=== PATIENT | male | born 1995 | race African-American/Black ===

== ENCOUNTER 2016-09-28 15:39 | Emergency (ER) | payer OTHER ==
[~2016-09-28] VITALS: Ht 193 cm; Wt 93.2 kg
[2016-09-28] MEDS ORDERED: HYDROCODONE/ACETAMINOPHEN 5-325 MG TABLET PO ONE (16:45)
[2016-09-28 16:50] VITALS: BP 131/59
== END 2016-09-28 17:51 | disposition home or self-care (01) ==
LOC: EMS 15:40
DX: S93.402A Sprain of unspecified ligament of left ankle, initial encounter (principal); S86.012A Strain of left Achilles tendon, initial encounter; X58.XXXA Exposure to other specified factors, initial encounter; Y93.67 Activity, basketball; Y92.89 Other specified places as the place of occurrence of the external cause; Y99.8 Other external cause status
CPT/HCPCS: 29515; 99284

== ENCOUNTER 2017-01-28 19:09 | Emergency (ER) | payer OTHER ==
[~2017-01-28] VITALS: Ht 193 cm; Wt 97.7 kg
[2017-01-28] MEDS ORDERED: IBUPROFEN 800 MG TABLET PO ONE (22:15)
[2017-01-28] MEDS ORDERED: BUPIVACAINE HCL/PF 0.25% 10 ML VIAL INJ ONE (22:30)
[2017-01-28 23:24] VITALS: BP 130/70
== END 2017-01-28 23:24 | disposition home or self-care (01) ==
LOC: EMS 19:11
DX: S91.201A Unspecified open wound of right great toe with damage to nail, initial encounter (principal); W22.8XXA Striking against or struck by other objects, initial encounter; Y93.89 Activity, other specified; Y92.89 Other specified places as the place of occurrence of the external cause; Y99.8 Other external cause status
CPT/HCPCS: 11730; 73660; 99285; J3490; 99284

== ENCOUNTER 2017-03-15 04:50 | Emergency (ER) | payer OTHER ==
[~2017-03-15] VITALS: Ht 193 cm; Wt 100.0 kg
[2017-03-15] MEDS ORDERED: BUPIVACAINE HCL/PF 0.5% 10 ML VIAL INJ ONE (06:30)
[2017-03-15] MEDS ORDERED: PENICILLIN V POTASSIUM 500 MG TABLET PO ONE (06:30)
[2017-03-15 07:00] VITALS: BP 136/89
== END 2017-03-15 07:26 | disposition home or self-care (01) ==
LOC: EMS 04:51
DX: K02.9 Dental caries, unspecified (principal); K04.01 Reversible pulpitis
CPT/HCPCS: 64400; 99284; J3490

== ENCOUNTER 2017-05-12 03:49 | Emergency (ER) | payer OTHER ==
[~2017-05-12] VITALS: Ht 193 cm; Wt 95.5 kg
[2017-05-12 04:34] LABS: APPEARANCE,URINE CLOUDY (CLEAR); GLUCOSE, URINE (UA) NEGATIVE (NEGATIVE); KETONES,URINE NEGATIVE (NEGATIVE); LEUKOCYTE ESTERASE ,URINE NEGATIVE (NEGATIVE); OCCULT BLOOD,URINE NEGATIVE (NEGATIVE); PH,URINE 6.5 (5.0-8.0); PROTEIN,URINE NEGATIVE (NEGATIVE)
[2017-05-12 04:49] LABS: RBC,URINE None Seen /HPF (0-2); WBC,URINE None Seen /HPF (0-5)
[2017-05-12 05:07] VITALS: BP 132/75
[2017-05-14 01:19] LABS: GC DNA N.A. AMPLIFY Negative (Negative)
== END 2017-05-12 05:08 | disposition home or self-care (01) ==
LOC: EMS 03:49
DX: Z11.3 Encounter for screening for infections with a predominantly sexual mode of transmission (principal); R23.8 Other skin changes
CPT/HCPCS: 87491; 87591; 99284

== ENCOUNTER 2017-07-20 00:07 | Emergency (ER) | payer SELFPAY ==
[~2017-07-20] VITALS: Ht 193 cm; Wt 95.5 kg
[2017-07-20 00:11] VITALS: BP 148/97
[2017-07-20] MEDS ORDERED: LIDOCAINE HCL 1% 10 ML VIAL INJ ONE (02:00)
== END 2017-07-20 02:08 | disposition home or self-care (01) ==
LOC: EMS 00:08
DX: K08.89 Other specified disorders of teeth and supporting structures (principal)
CPT/HCPCS: 64400; 99284; J3490

== ENCOUNTER 2017-10-18 16:24 | Emergency (ER) | payer SELFPAY ==
[~2017-10-18] VITALS: Ht 193 cm; Wt 95.5 kg
[2017-10-18 17:16] LABS: APPEARANCE,URINE CLEAR (CLEAR); BILIRUBIN,URINE NEGATIVE (NEGATIVE); GLUCOSE, URINE (UA) NEGATIVE (NEGATIVE); KETONES,URINE NEGATIVE (NEGATIVE); LEUKOCYTE ESTERASE ,URINE MODERATE (NEGATIVE); NITRATE,URINE NEGATIVE (NEGATIVE); OCCULT BLOOD,URINE NEGATIVE (NEGATIVE); PROTEIN,URINE NEGATIVE (NEGATIVE); UROBILINOGEN,URINE 0.2 mg/dL (<=1.0)
[2017-10-18 17:30] LABS: BACTERIA,URINE Few /HPF (None Seen); RBC,URINE 0-2 /HPF (0-2); WBC,URINE 26-50 /HPF (0-5)
[2017-10-18 17:31] LABS: MUCUS,URINE Rare LPF (None Seen); SQUAMOUS EPITHELIAL CELL,UR Rare /LPF (None Seen)
[2017-10-18] MEDS ORDERED: KETOROLAC TROMETHAMINE 30 MG/ML VIAL IVP ONE (18:00)
[2017-10-18 18:19] LABS: BASOPHILS % (AUTO) 0.9 % (0.0-2.0); EOSINOPHILS % (AUTO) 2.5 % (1.0-6.0); HEMATOCRIT 42.6 % (41-53); HEMOGLOBIN 14.4 g/dL (13.5-17.5); LYMPHOCYTES # (AUTO) 2.4 K/uL (1.0-4.8); LYMPHOCYTES % (AUTO) 33.2 % (22.0-44.0); MEAN CORPUSCULAR HEMOGLOBIN 30.1 pg (26.0-34.0); MEAN CORPUSCULAR HGB CONC 33.8 G/dL (31.0-37.0); MEAN CORPUSCULAR VOLUME 89 fL (80-100); MONOCYTES # (AUTO) 0.8 K/uL (0.1-1.0); MONOCYTES % (AUTO) 11.2 % (2.0-9.0); NEUTROPHILS # (AUTO) 3.8 K/uL (1.8-7.7); NEUTROPHILS % (AUTO) 52.2 % (40.0-70.0); PLATELET COUNT (AUTO) 216 K/uL (150-450); RED BLOOD CELL COUNT(AUTO) 4.78 MIL/uL (4.50-5.90); RED CELL DISTRIBUTION WIDTH 13.8 % (11.5-14.5)
[2017-10-18 18:32] LABS: ANION GAP 7 mmol/L (8-16); CALCIUM, TOTAL 9.3 mg/dL (8.8-10.5); CARBON DIOXIDE 28 mmol/L (22-29); CHLORIDE 104 mmol/L (98-107); CREATININE 1.11 mg/dL (0.60-1.30); GLOMERULAR FILTR. RATE CALC > 60 mL/min (>60); GLUCOSE,RANDOM 80 mg/dL (70-110); POTASSIUM 3.7 mmol/L (3.5-5.1); SODIUM SERUM 139 mmol/L (136-145); UREA NITROGEN, BLOOD 9 mg/dL (7-18)
[2017-10-18 18:38] LABS: ALANINE AMINOTRANSFERASE 30 U/L (12-78); ALBUMIN 3.9 g/dL (3.4-5.0); ALKALINE PHOSPHATASE 78 U/L (46-116); ASPARTATE AMINOTRANSFERASE 21 U/L (15-37); BILIRUBIN,TOTAL 0.4 mg/dL (0.1-1.0); LIPASE 114 U/L (73-393); TOTAL PROTEIN, SERUM 7.1 g/dL (6.4-8.2)
[2017-10-18] MEDS ORDERED: IOVERSOL 350 MG/ML 150 ML VIAL ONE (19:36)
[2017-10-18] MEDS ORDERED: SODIUM CHLORIDE 0.9% 100 ML ONE (19:36)
[2017-10-18 21:00] VITALS: BP 126/83
[2017-10-18] MEDS ORDERED: CefTRIAXone SODIUM 1 GM in DEXTROSE 5%-WATER 10 ML IV ONE (21:00)
== END 2017-10-18 21:52 | disposition home or self-care (01) ==
LOC: EMS 16:24
DX: N39.0 Urinary tract infection, site not specified (principal)
CPT/HCPCS: 36415; 74177; 80053; 81001; 83690; 85025; 87086; 96374; 96375; 99285; J0696; J1885; J7050; J7060; Q9967

== ENCOUNTER 2017-12-16 16:57 | Emergency (ER) | payer SELFPAY | END 2017-12-16 17:31 | disposition left against medical advice (07) | LOC: EMS 16:58 | DX: T14.8XXA Other injury of unspecified body region, initial encounter (principal); W50.3XXA Accidental bite by another person, initial encounter; Y93.89 Activity, other specified; Y92.89 Other specified places as the place of occurrence of the external cause; Y99.8 Other external cause status; Z53.21 Procedure and treatment not carried out due to patient leaving prior to being seen by health care provider ==

== ENCOUNTER 2018-03-22 05:39 | Emergency (ER) | payer SELFPAY ==
[~2018-03-22] VITALS: Ht 190.5 cm; Wt 95.4 kg
[2018-03-22] MEDS ORDERED: HYDROCODONE/ACETAMINOPHEN 5-325 MG TABLET PO ONE (06:30)
[2018-03-22] MEDS ORDERED: PENICILLIN V POTASSIUM 500 MG TABLET PO ONE (06:30)
[2018-03-22] MEDS ORDERED: KETOROLAC TROMETHAMINE 60 MG/2 ML VIAL IM ONE (06:30)
[2018-03-22 07:00] VITALS: BP 133/71
[2018-03-22] MEDS ORDERED: BUPIVACAINE/EPI/PF 0.5% 30 ML VIAL SQ ONE (07:00)
== END 2018-03-22 07:22 | disposition left against medical advice (07) ==
LOC: EMS 05:40
DX: K08.89 Other specified disorders of teeth and supporting structures (principal)
CPT/HCPCS: 96372; 99283; J1885; J3490

== ENCOUNTER 2018-04-27 07:05 | Inpatient (IN) | payer SELFPAY ==
[~2018-04-27] VITALS: Ht 193 cm; Wt 98.6 kg
[2018-04-27] MEDS ORDERED: KETOROLAC TROMETHAMINE 30 MG/ML VIAL IVP ONE (07:45)
[2018-04-27] MEDS ORDERED: ONDANSETRON HCL 4 MG/2 ML VIAL IVP ONE (07:45)
[2018-04-27] MEDS ORDERED: SODIUM CHLORIDE 0.9% 1,000 ML IV ONE ×2 (07:45→11:00)
[2018-04-27 08:00] LABS: BASOPHILS % (AUTO) 1.1 % (0.0-2.0); EOSINOPHILS % (AUTO) 2.9 % (1.0-6.0); HEMATOCRIT 43.6 % (41-53); LYMPHOCYTES # (AUTO) 2.3 K/uL (1.0-4.8); LYMPHOCYTES % (AUTO) 35.4 % (22.0-44.0); MEAN CORPUSCULAR HEMOGLOBIN 31.1 pg (26.0-34.0); MEAN CORPUSCULAR HGB CONC 34.5 G/dL (31.0-37.0); MEAN CORPUSCULAR VOLUME 90 fL (80-100); MONOCYTES # (AUTO) 0.7 K/uL (0.1-1.0); NEUTROPHILS # (AUTO) 3.3 K/uL (1.8-7.7); NEUTROPHILS % (AUTO) 50.6 % (40.0-70.0); PLATELET COUNT (AUTO) 208 K/uL (150-450); RED BLOOD CELL COUNT(AUTO) 4.82 MIL/uL (4.50-5.90); RED CELL DISTRIBUTION WIDTH 13.8 % (11.5-14.5)
[2018-04-27 08:03] LABS: APPEARANCE,URINE CLEAR (CLEAR); BILIRUBIN,URINE NEGATIVE (NEGATIVE); GLUCOSE, URINE (UA) NEGATIVE (NEGATIVE); KETONES,URINE NEGATIVE (NEGATIVE); LEUKOCYTE ESTERASE ,URINE NEGATIVE (NEGATIVE); NITRATE,URINE NEGATIVE (NEGATIVE); OCCULT BLOOD,URINE NEGATIVE (NEGATIVE); PROTEIN,URINE NEGATIVE (NEGATIVE); UROBILINOGEN,URINE 0.2 mg/dL (<=1.0)
[2018-04-27 08:16] LABS: ANION GAP 7 mmol/L (8-16); CALCIUM, TOTAL 9.4 mg/dL (8.8-10.5); CARBON DIOXIDE 30 mmol/L (22-29); CHLORIDE 102 mmol/L (98-107); CREATININE 1.25 mg/dL (0.60-1.30); GLOMERULAR FILTR. RATE CALC > 60 mL/min (>60); GLUCOSE,RANDOM 101 mg/dL (70-110); POTASSIUM 3.7 mmol/L (3.5-5.1); SODIUM SERUM 139 mmol/L (136-145); UREA NITROGEN, BLOOD 11 mg/dL (7-18)
[2018-04-27 08:22] LABS: ALANINE AMINOTRANSFERASE 28 U/L (12-78); ALBUMIN 4.1 g/dL (3.4-5.0); ALKALINE PHOSPHATASE 84 U/L (46-116); ASPARTATE AMINOTRANSFERASE 19 U/L (15-37); BILIRUBIN,TOTAL 0.6 mg/dL (0.1-1.0); LIPASE 1192 U/L (73-393); TOTAL PROTEIN, SERUM 7.4 g/dL (6.4-8.2)
[2018-04-27] MEDS ORDERED: MORPHINE SULFATE 4 MG/ML SYRINGE IVP PRN ×2 (11:00→17:45)
[2018-04-27] MEDS ORDERED: ONDANSETRON HCL 4 MG/2 ML VIAL IVP PRN (11:00)
[2018-04-27 12:20] VITALS: BP 132/78
[2018-04-27 15:29] VITALS: BP 119/74
[2018-04-27] MEDS: DEXTROSE 5%-0.45% SODIUM CHL 1,000 ML IV SCH (17:42)
[2018-04-27] MEDS ORDERED: ZOLPIDEM TARTRATE 5 MG TABLET PO PRN (17:45)
[2018-04-27] MEDS ORDERED: ALBUTEROL SULFATE 2.5 MG/0.5 ML NEB SOLUTION NEB PRN (17:45)
[2018-04-27] MEDS ORDERED: IPRATROPIUM BROMIDE 0.5 MG/2.5 ML NEB SOLUTION NEB PRN (17:45)
[2018-04-27] MEDS ORDERED: MAGNESIUM HYDROXIDE SUSPENSION 30 ML UDCUP PO PRN (17:45)
[2018-04-27] MEDS ORDERED: BISACODYL 10 MG RECTAL RECTAL SUPPOSITORY PR PRN (17:45)
[2018-04-27] MEDS ORDERED: ACETAMINOPHEN 325 MG TABLET PO PRN (17:45)
[2018-04-27] MEDS: DOCUSATE SODIUM 100 MG CAPSULE PO SCH (19:58)
[2018-04-27 20:11] VITALS: BP 113/56
[2018-04-27] MEDS: HEPARIN SODIUM,PORCINE 5,000 UNITS/ML VIAL SQ SCH (23:28)
[2018-04-28] MEDS: DEXTROSE 5%-0.45% SODIUM CHL 1,000 ML IV SCH ×2 (00:22→08:44)
[2018-04-28] MEDS: OxyCODONE HCL/ACETAMINOPHEN 5-325 MG TABLET PO PRN ×3 (00:22→21:20)
[2018-04-28 00:42] VITALS: BP 118/58
[2018-04-28 05:29] VITALS: BP 111/61
[2018-04-28 05:31] LABS: EOSINOPHILS % (AUTO) 3.2 % (1.0-6.0); HEMATOCRIT 40.9 % (41-53); HEMOGLOBIN 14.2 g/dL (13.5-17.5); LYMPHOCYTES # (AUTO) 2.3 K/uL (1.0-4.8); LYMPHOCYTES % (AUTO) 43.8 % (22.0-44.0); MEAN CORPUSCULAR HEMOGLOBIN 31.1 pg (26.0-34.0); MEAN CORPUSCULAR HGB CONC 34.6 G/dL (31.0-37.0); MEAN CORPUSCULAR VOLUME 90 fL (80-100); MONOCYTES # (AUTO) 0.5 K/uL (0.1-1.0); MONOCYTES % (AUTO) 9.3 % (2.0-9.0); NEUTROPHILS # (AUTO) 2.3 K/uL (1.8-7.7); NEUTROPHILS % (AUTO) 42.7 % (40.0-70.0); PLATELET COUNT (AUTO) 195 K/uL (150-450); RED BLOOD CELL COUNT(AUTO) 4.55 MIL/uL (4.50-5.90); RED CELL DISTRIBUTION WIDTH 13.7 % (11.5-14.5)
[2018-04-28 05:46] LABS: ALANINE AMINOTRANSFERASE 24 U/L (12-78); ALBUMIN 3.5 g/dL (3.4-5.0); ALKALINE PHOSPHATASE 74 U/L (46-116); AMYLASE 74 U/L (25-115); ANION GAP 6 mmol/L (8-16); ASPARTATE AMINOTRANSFERASE 17 U/L (15-37); BILIRUBIN,TOTAL 0.9 mg/dL (0.1-1.0); CALCIUM, TOTAL 8.7 mg/dL (8.8-10.5); CARBON DIOXIDE 28 mmol/L (22-29); CHLORIDE 104 mmol/L (98-107); CREATININE 1.16 mg/dL (0.60-1.30); GLOMERULAR FILTR. RATE CALC > 60 mL/min (>60); GLUCOSE,RANDOM 106 mg/dL (70-110); LIPASE 211 U/L (73-393); POTASSIUM 3.5 mmol/L (3.5-5.1); SODIUM SERUM 138 mmol/L (136-145); TOTAL PROTEIN, SERUM 6.3 g/dL (6.4-8.2); UREA NITROGEN, BLOOD 8 mg/dL (7-18)
[2018-04-28 07:33] VITALS: BP 109/49
[2018-04-28] MEDS: DOCUSATE SODIUM 100 MG CAPSULE PO SCH (08:45)
[2018-04-28] MEDS: HEPARIN SODIUM,PORCINE 5,000 UNITS/ML VIAL SQ SCH ×2 (08:45→16:00)
[2018-04-28] MEDS: PANTOPRAZOLE SODIUM 40 MG/VIAL IVP SCH (08:45)
[2018-04-28 12:00] VITALS: BP 132/50
[2018-04-28] MEDS: ONDANSETRON HCL 4 MG/2 ML VIAL IVP PRN (12:58)
[2018-04-28 15:55] VITALS: BP 119/63
[2018-04-28 23:58] VITALS: BP 118/59
[2018-04-29] MEDS: HEPARIN SODIUM,PORCINE 5,000 UNITS/ML VIAL SQ SCH ×3 (00:27→14:08)
[2018-04-29] MEDS: DOCUSATE SODIUM 100 MG CAPSULE PO SCH ×3 (00:28→21:22)
[2018-04-29 03:30] VITALS: BP 126/64
[2018-04-29 06:14] LABS: BASOPHILS % (AUTO) 0.8 % (0.0-2.0); HEMATOCRIT 40.7 % (41-53); HEMOGLOBIN 14.6 g/dL (13.5-17.5); LYMPHOCYTES # (AUTO) 2.3 K/uL (1.0-4.8); MEAN CORPUSCULAR HEMOGLOBIN 31.4 pg (26.0-34.0); MEAN CORPUSCULAR HGB CONC 35.8 G/dL (31.0-37.0); MEAN CORPUSCULAR VOLUME 88 fL (80-100); MONOCYTES # (AUTO) 0.6 K/uL (0.1-1.0); MONOCYTES % (AUTO) 9.5 % (2.0-9.0); NEUTROPHILS % (AUTO) 48.7 % (40.0-70.0); PLATELET COUNT (AUTO) 200 K/uL (150-450); RED BLOOD CELL COUNT(AUTO) 4.63 MIL/uL (4.50-5.90); RED CELL DISTRIBUTION WIDTH 13.5 % (11.5-14.5)
[2018-04-29 06:27] LABS: ALANINE AMINOTRANSFERASE 25 U/L (12-78); ALBUMIN 3.6 g/dL (3.4-5.0); ALKALINE PHOSPHATASE 82 U/L (46-116); AMYLASE 80 U/L (25-115); ANION GAP 5 mmol/L (8-16); ASPARTATE AMINOTRANSFERASE 19 U/L (15-37); CALCIUM, TOTAL 9.2 mg/dL (8.8-10.5); CARBON DIOXIDE 30 mmol/L (22-29); CHLORIDE 105 mmol/L (98-107); CREATININE 1.09 mg/dL (0.60-1.30); GLOMERULAR FILTR. RATE CALC > 60 mL/min (>60); GLUCOSE,RANDOM 86 mg/dL (70-110); LIPASE 164 U/L (73-393); POTASSIUM 3.6 mmol/L (3.5-5.1); SODIUM SERUM 140 mmol/L (136-145); TOTAL PROTEIN, SERUM 6.6 g/dL (6.4-8.2); UREA NITROGEN, BLOOD 5 mg/dL (7-18)
[2018-04-29 08:00] VITALS: BP 111/66
[2018-04-29] MEDS: PANTOPRAZOLE SODIUM 40 MG/VIAL IVP SCH (08:24)
[2018-04-29] MEDS: OxyCODONE HCL/ACETAMINOPHEN 5-325 MG TABLET PO PRN (09:33)
[2018-04-29 11:59] VITALS: BP 120/66
[2018-04-29] MEDS: ONDANSETRON HCL 4 MG/2 ML VIAL IVP PRN (13:12)
[2018-04-29 15:49] VITALS: BP 112/56
[2018-04-29] MEDS ORDERED: SODIUM CHLORIDE 0.9% 100 ML ONE (16:30)
[2018-04-29] MEDS ORDERED: IOVERSOL 320 MG/ML 100 ML VIAL ONE (16:30)
[2018-04-29] MEDS ORDERED: BARIUM SULFATE 0.1% SUSPENSION 450 ML BOTTLE ONE (17:14)
[2018-04-29 19:57] VITALS: BP 125/67
[2018-04-29] MEDS ORDERED: DiphenhydrAMINE HCL 50 MG/ML VIAL IVP ONE (21:00)
[2018-04-29] MEDS ORDERED: FAMOTIDINE 10 MG/ML 2 ML VIAL IVP ONE (21:00)
[2018-04-29] MEDS ORDERED: MethylPREDNISolone SOD SUCC 40 MG/ML VIAL IVP ONE (21:15)
[2018-04-29] MEDS ORDERED: FAMOTIDINE 20 MG TABLET PO ONE (21:30)
[2018-04-29 23:08] VITALS: BP 130/67
[2018-04-30 04:50] VITALS: BP 111/73
[2018-04-30 06:41] LABS: BASOPHILS % (AUTO) 0.2 % (0.0-2.0); EOSINOPHILS % (AUTO) 0.1 % (1.0-6.0); HEMATOCRIT 44.5 % (41-53); HEMOGLOBIN 15.8 g/dL (13.5-17.5); LYMPHOCYTES # (AUTO) 0.7 K/uL (1.0-4.8); MEAN CORPUSCULAR HEMOGLOBIN 31.5 pg (26.0-34.0); MEAN CORPUSCULAR HGB CONC 35.4 G/dL (31.0-37.0); MEAN CORPUSCULAR VOLUME 89 fL (80-100); MONOCYTES # (AUTO) 0.1 K/uL (0.1-1.0); NEUTROPHILS # (AUTO) 4.1 K/uL (1.8-7.7); NEUTROPHILS % (AUTO) 82.7 % (40.0-70.0); PLATELET COUNT (AUTO) 239 K/uL (150-450); RED CELL DISTRIBUTION WIDTH 13.9 % (11.5-14.5)
[2018-04-30 06:56] LABS: ALANINE AMINOTRANSFERASE 24 U/L (12-78); ALBUMIN 4.1 g/dL (3.4-5.0); ALKALINE PHOSPHATASE 87 U/L (46-116); AMYLASE 62 U/L (25-115); ANION GAP 7 mmol/L (8-16); ASPARTATE AMINOTRANSFERASE 16 U/L (15-37); BILIRUBIN,TOTAL 0.7 mg/dL (0.1-1.0); CALCIUM, TOTAL 9.7 mg/dL (8.8-10.5); CARBON DIOXIDE 28 mmol/L (22-29); CHLORIDE 100 mmol/L (98-107); CREATININE 1.28 mg/dL (0.60-1.30); GLOMERULAR FILTR. RATE CALC > 60 mL/min (>60); GLUCOSE,RANDOM 124 mg/dL (70-110); LIPASE 93 U/L (73-393); POTASSIUM 4.1 mmol/L (3.5-5.1); SODIUM SERUM 135 mmol/L (136-145); TOTAL PROTEIN, SERUM 7.6 g/dL (6.4-8.2); UREA NITROGEN, BLOOD 6 mg/dL (7-18)
[2018-04-30 08:00] VITALS: BP 123/67
[2018-04-30] MEDS: HEPARIN SODIUM,PORCINE 5,000 UNITS/ML VIAL SQ SCH ×2 (08:00)
[2018-04-30] MEDS: PANTOPRAZOLE SODIUM 40 MG/VIAL IVP SCH (09:00)
[2018-04-30] MEDS: DOCUSATE SODIUM 100 MG CAPSULE PO SCH (09:00)
[2018-04-30 11:15] VITALS: BP 131/75
== END 2018-04-30 11:45 | disposition home or self-care (01) | DRG 282 ==
LOC: EMS 07:05 → 6N 10:58
PROVIDERS: ADMIT Hospitalist; ATTEND Hospitalist
DX: K85.90 Acute pancreatitis without necrosis or infection, unspecified (principal); J45.909 Unspecified asthma, uncomplicated
CPT/HCPCS: 74176; 74177; 76705; 86850; 86900; 86901; 96374; 96375; C9113; G0378; J1200; J1644; J1885; J2270; J2405; J2920; J3490; J7030; J7050

== ENCOUNTER 2018-06-09 20:47 | Emergency (ER) | payer MEDICAID ==
[~2018-06-09] VITALS: Ht 193 cm; Wt 95.5 kg
[2018-06-09 22:03] LABS: HEMATOCRIT 43.3 % (41-53); HEMOGLOBIN 14.8 g/dL (13.5-17.5); LYMPHOCYTES % (AUTO) 29.7 % (22.0-44.0); MEAN CORPUSCULAR HEMOGLOBIN 30.7 pg (26.0-34.0); MEAN CORPUSCULAR HGB CONC 34.1 G/dL (31.0-37.0); MEAN CORPUSCULAR VOLUME 90 fL (80-100); MONOCYTES # (AUTO) 0.6 K/uL (0.1-1.0); MONOCYTES % (AUTO) 9.6 % (2.0-9.0); NEUTROPHILS # (AUTO) 3.8 K/uL (1.8-7.7); NEUTROPHILS % (AUTO) 56.7 % (40.0-70.0); PLATELET COUNT (AUTO) 220 K/uL (150-450); RED BLOOD CELL COUNT(AUTO) 4.82 MIL/uL (4.50-5.90); RED CELL DISTRIBUTION WIDTH 13.8 % (11.5-14.5)
[2018-06-09 22:08] LABS: ANION GAP 8 mmol/L (8-16); CALCIUM, TOTAL 9.4 mg/dL (8.8-10.5); CARBON DIOXIDE 30 mmol/L (22-29); CHLORIDE 104 mmol/L (98-107); CREATININE 1.06 mg/dL (0.60-1.30); GLOMERULAR FILTR. RATE CALC > 60 mL/min (>60); GLUCOSE,RANDOM 98 mg/dL (70-110); POTASSIUM 3.5 mmol/L (3.5-5.1); SODIUM SERUM 142 mmol/L (136-145); UREA NITROGEN, BLOOD 9 mg/dL (7-18)
[2018-06-09 22:14] LABS: ALANINE AMINOTRANSFERASE 34 U/L (12-78); ALBUMIN 4.1 g/dL (3.4-5.0); ALKALINE PHOSPHATASE 82 U/L (46-116); ASPARTATE AMINOTRANSFERASE 24 U/L (15-37); BILIRUBIN,TOTAL 0.7 mg/dL (0.1-1.0); LIPASE 137 U/L (73-393); TOTAL PROTEIN, SERUM 7.2 g/dL (6.4-8.2)
[2018-06-09 23:06] VITALS: BP 145/83
== END 2018-06-09 23:30 | disposition home or self-care (01) ==
LOC: EMS 20:48
DX: R10.13 Epigastric pain (principal); R10.12 Left upper quadrant pain; J45.909 Unspecified asthma, uncomplicated
CPT/HCPCS: 93005

== ENCOUNTER 2018-07-02 20:41 | Emergency (ER) | payer SELFPAY ==
[~2018-07-02] VITALS: Ht 193 cm; Wt 97.7 kg
[2018-07-02] MEDS ORDERED: METO-296 PO (22:03)
[2018-07-02] MEDS ORDERED: SODIUM CHLORIDE 0.9% 2,000 ML IV ONE (22:30)
[2018-07-02] MEDS ORDERED: FentaNYL CITRATE-PF 100 MCG/2 ML VIAL IVP ONE (22:30)
[2018-07-02] MEDS ORDERED: ONDANSETRON HCL 4 MG/2 ML VIAL IVP ONE (22:30)
[2018-07-02 22:59] LABS: HEMATOCRIT 41.3 % (41-53); HEMOGLOBIN 14.2 g/dL (13.5-17.5); LYMPHOCYTES # (AUTO) 1.8 K/uL (1.0-4.8); LYMPHOCYTES % (AUTO) 26.7 % (22.0-44.0); MEAN CORPUSCULAR HEMOGLOBIN 30.8 pg (26.0-34.0); MEAN CORPUSCULAR HGB CONC 34.5 G/dL (31.0-37.0); MEAN CORPUSCULAR VOLUME 89 fL (80-100); MONOCYTES # (AUTO) 0.6 K/uL (0.1-1.0); MONOCYTES % (AUTO) 9.2 % (2.0-9.0); NEUTROPHILS % (AUTO) 61.1 % (40.0-70.0); PLATELET COUNT (AUTO) 215 K/uL (150-450); RED BLOOD CELL COUNT(AUTO) 4.63 MIL/uL (4.50-5.90); RED CELL DISTRIBUTION WIDTH 13.8 % (11.5-14.5)
[2018-07-02 23:13] LABS: ANION GAP 9 mmol/L (8-16); CALCIUM, TOTAL 8.7 mg/dL (8.8-10.5); CARBON DIOXIDE 28 mmol/L (22-29); CHLORIDE 105 mmol/L (98-107); CREATININE 0.95 mg/dL (0.60-1.30); GLOMERULAR FILTR. RATE CALC > 60 mL/min (>60); GLUCOSE,RANDOM 88 mg/dL (70-110); POTASSIUM 3.4 mmol/L (3.5-5.1); SODIUM SERUM 142 mmol/L (136-145); UREA NITROGEN, BLOOD 9 mg/dL (7-18)
[2018-07-02 23:18] LABS: ALANINE AMINOTRANSFERASE 20 U/L (12-78); ALBUMIN 3.7 g/dL (3.4-5.0); ALKALINE PHOSPHATASE 80 U/L (46-116); ASPARTATE AMINOTRANSFERASE 15 U/L (15-37); BILIRUBIN,TOTAL 0.6 mg/dL (0.1-1.0); LIPASE 162 U/L (73-393); TOTAL PROTEIN, SERUM 6.7 g/dL (6.4-8.2)
[2018-07-03] MEDS ORDERED: ACETAMINOPHEN/CODEINE 300-30 MG TABLET PO ONE (02:00)
[2018-07-03] MEDS ORDERED: ONDANSETRON HCL 4 MG TABLET PO ONE (02:00)
[2018-07-03 02:10] VITALS: BP 122/65
== END 2018-07-03 02:42 | disposition home or self-care (01) ==
LOC: EMS 20:43
DX: R55 Syncope and collapse (principal); K52.9 Noninfective gastroenteritis and colitis, unspecified; J45.909 Unspecified asthma, uncomplicated
CPT/HCPCS: 36415; 70450; 72125; 80053; 83690; 85025; 96361; 96374; 96375; 99284; J2405; J3010; J7030; Q0162

== ENCOUNTER 2018-10-12 01:04 | Emergency (ER) | payer SELFPAY ==
[~2018-10-12] VITALS: Ht 193 cm; Wt 100.0 kg
[~2018-10-12 01:04] MED LIST: METO-296 PO
[2018-10-12 01:54] LABS: BASOPHILS % (AUTO) 0.8 % (0.0-2.0); HEMATOCRIT 43.6 % (41-53); HEMOGLOBIN 14.5 g/dL (13.5-17.5); LYMPHOCYTES % (AUTO) 14.5 % (22.0-44.0); MEAN CORPUSCULAR HEMOGLOBIN 30.2 pg (26.0-34.0); MEAN CORPUSCULAR HGB CONC 33.3 G/dL (31.0-37.0); MEAN CORPUSCULAR VOLUME 91 fL (80-100); MONOCYTES # (AUTO) 0.6 K/uL (0.1-1.0); MONOCYTES % (AUTO) 8.9 % (2.0-9.0); NEUTROPHILS # (AUTO) 5.4 K/uL (1.8-7.7); NEUTROPHILS % (AUTO) 74.8 % (40.0-70.0); PLATELET COUNT (AUTO) 217 K/uL (150-450); RED BLOOD CELL COUNT(AUTO) 4.81 MIL/uL (4.50-5.90); RED CELL DISTRIBUTION WIDTH 13.7 % (11.5-14.5)
[2018-10-12 02:00] LABS: ANION GAP 12 mmol/L (8-16); CALCIUM, TOTAL 9.7 mg/dL (8.8-10.5); CARBON DIOXIDE 27 mmol/L (22-29); CHLORIDE 103 mmol/L (98-107); CREATININE 1.21 mg/dL (0.60-1.30); GLOMERULAR FILTR. RATE CALC > 60 mL/min (>60); GLUCOSE,RANDOM 96 mg/dL (70-110); POTASSIUM 3.6 mmol/L (3.5-5.1); SODIUM SERUM 142 mmol/L (136-145); UREA NITROGEN, BLOOD 10 mg/dL (7-18)
[2018-10-12 02:06] LABS: ALANINE AMINOTRANSFERASE 26 U/L (12-78); ALBUMIN 4.2 g/dL (3.4-5.0); ALKALINE PHOSPHATASE 81 U/L (46-116); ASPARTATE AMINOTRANSFERASE 19 U/L (15-37); BILIRUBIN,TOTAL 0.7 mg/dL (0.1-1.0); LIPASE 143 U/L (73-393); TOTAL PROTEIN, SERUM 7.1 g/dL (6.4-8.2)
[2018-10-12 04:08] LABS: APPEARANCE,URINE CLEAR (CLEAR); BILIRUBIN,URINE NEGATIVE (NEGATIVE); GLUCOSE, URINE (UA) NEGATIVE (NEGATIVE); KETONES,URINE NEGATIVE (NEGATIVE); LEUKOCYTE ESTERASE ,URINE TRACE (NEGATIVE); NITRATE,URINE NEGATIVE (NEGATIVE); OCCULT BLOOD,URINE NEGATIVE (NEGATIVE); PH,URINE 7.5 (5.0-8.0); PROTEIN,URINE NEGATIVE (NEGATIVE)
[2018-10-12 04:15] LABS: BACTERIA,URINE None Seen /HPF (None Seen); RBC,URINE 0-2 /HPF (0-2)
[2018-10-12] MEDS ORDERED: ONDANSETRON HCL 4 MG TABLET PO ONE (04:15)
[2018-10-12] MEDS ORDERED: PB/HYOSCY/ATR/SCOP/LIDO/MAALOX 55 ML BOTTLE PO ONE (04:15)
[2018-10-12 04:16] LABS: SQUAMOUS EPITHELIAL CELL,UR Rare /LPF (None Seen)
[2018-10-12 05:05] VITALS: BP 124/60
== END 2018-10-12 05:22 | disposition home or self-care (01) ==
LOC: EMS 01:06
DX: R10.13 Epigastric pain (principal); R11.0 Nausea; J45.909 Unspecified asthma, uncomplicated
CPT/HCPCS: 36415; 80053; 81001; 83690; 85025; 99283; Q0162

== ENCOUNTER 2019-01-11 17:50 | Emergency (ER) | payer SELFPAY ==
[~2019-01-11] VITALS: Ht 193 cm; Wt 100.0 kg
[2019-01-11] MEDS ORDERED: KETOROLAC TROMETHAMINE 30 MG/ML VIAL IVP ONE (19:45)
[2019-01-11 20:13] VITALS: BP 112/62
== END 2019-01-11 20:36 | disposition home or self-care (01) ==
LOC: EMS 17:51
DX: S93.402A Sprain of unspecified ligament of left ankle, initial encounter (principal); J45.909 Unspecified asthma, uncomplicated; W50.0XXA Accidental hit or strike by another person, initial encounter; Y93.89 Activity, other specified; Y92.89 Other specified places as the place of occurrence of the external cause; Y99.8 Other external cause status
CPT/HCPCS: 73610; 73630; 96374; 99283; J1885

== ENCOUNTER 2019-03-05 08:16 | Emergency (ER) | payer SELFPAY | END 2019-03-05 08:20 | disposition left against medical advice (07) | LOC: EMS 08:18 | DX: Z53.21 Procedure and treatment not carried out due to patient leaving prior to being seen by health care provider (principal) ==

== ENCOUNTER 2019-03-05 10:31 | Emergency (ER) | payer SELFPAY ==
[~2019-03-05] VITALS: Ht 193 cm; Wt 95.9 kg
[2019-03-05 11:38] VITALS: BP 153/83
== END 2019-03-05 11:58 | disposition home or self-care (01) ==
LOC: EMS 10:32
DX: K02.9 Dental caries, unspecified (principal); J45.909 Unspecified asthma, uncomplicated

== ENCOUNTER 2019-04-18 14:45 | Emergency (ER) | payer SELFPAY ==
[~2019-04-18] VITALS: Ht 185.4 cm; Wt 86.0 kg
[2019-04-18] MEDS ORDERED: OxyCODONE HCL/ACETAMINOPHEN 10-325 MG TABLET PO ONE ×2 (17:15→18:30)
[2019-04-18] MEDS ORDERED: LIDOCAINE 1%/EPI 1:200,000/PF 10 ML VIAL INJ ONE (18:00)
[2019-04-18] MEDS ORDERED: IBUPROFEN 600 MG TABLET PO ONE (18:00)
[2019-04-18 19:04] VITALS: BP 136/94
== END 2019-04-18 19:09 | disposition home or self-care (01) ==
LOC: EMS 14:46
DX: S02.5XXA Fracture of tooth (traumatic), initial encounter for closed fracture (principal); K02.9 Dental caries, unspecified; J45.909 Unspecified asthma, uncomplicated; X58.XXXA Exposure to other specified factors, initial encounter; Y93.89 Activity, other specified; Y92.89 Other specified places as the place of occurrence of the external cause; Y99.8 Other external cause status
CPT/HCPCS: 99283; J3490

== ENCOUNTER 2019-06-27 21:20 | Emergency (ER) | payer SELFPAY ==
[~2019-06-27] VITALS: Ht 193 cm; Wt 98.2 kg
[2019-06-27] MEDS ORDERED: DiphenhydrAMINE HCL 25 MG CAPSULE PO ONE (22:45)
[2019-06-27] MEDS ORDERED: KETOROLAC TROMETHAMINE 60 MG/2 ML VIAL IM ONE (22:45)
[2019-06-27] MEDS ORDERED: GuaiFENesin/D-METHORPHAN [SUGAR-FREE] 200-20MG/10 ML SYRUP UDCUP PO ONE (22:45)
[2019-06-27] MEDS ORDERED: ACETAMINOPHEN/CODEINE 300-30 MG TABLET PO ONE (22:45)
[2019-06-27 22:48] VITALS: BP 135/78
== END 2019-06-27 23:10 | disposition home or self-care (01) ==
LOC: EMS 21:21
DX: J45.909 Unspecified asthma, uncomplicated (principal); J06.9 Acute upper respiratory infection, unspecified
CPT/HCPCS: 96372; 99284; J1885

== ENCOUNTER 2019-10-26 16:06 | Emergency (ER) | payer SELFPAY ==
[~2019-10-26] VITALS: Ht 193 cm; Wt 99.1 kg
[2019-10-26 16:35] VITALS: BP 123/76
== END 2019-10-26 17:11 | disposition home or self-care (01) ==
LOC: EMS 16:22
DX: S30.860A Insect bite (nonvenomous) of lower back and pelvis, initial encounter (principal); J45.909 Unspecified asthma, uncomplicated; W57.XXXA Bitten or stung by nonvenomous insect and other nonvenomous arthropods, initial encounter; Y93.89 Activity, other specified; Y92.098 Other place in other non-institutional residence as the place of occurrence of the external cause; Y99.8 Other external cause status

== ENCOUNTER 2021-03-30 14:26 | Emergency (ER) | payer OTHER ==
[~2021-03-30] VITALS: Ht 193 cm; Wt 100.0 kg
[2021-03-30 16:32] VITALS: BP 126/66
== END 2021-03-30 16:23 | disposition home or self-care (01) ==
LOC: EMS 14:27
DX: R19.7 Diarrhea, unspecified (principal); Z20.822 Contact with and (suspected) exposure to COVID-19
CPT/HCPCS: 99283; U0003

== ENCOUNTER 2021-06-26 08:41 | Emergency (ER) | payer OTHER | END 2021-06-26 09:17 | disposition left against medical advice (07) | LOC: EMS 08:43 | DX: R06.02 Shortness of breath (principal); Z53.21 Procedure and treatment not carried out due to patient leaving prior to being seen by health care provider ==

== ENCOUNTER 2021-12-26 22:44 | Emergency (ER) | payer OTHER ==
[~2021-12-26] VITALS: Ht 193 cm; Wt 106.8 kg
[2021-12-26 23:18] VITALS: BP 133/86
[2021-12-27] MEDS ORDERED: METOCLOPRAMIDE HCL 5 MG/ML 2 ML VIAL IVP ONE
[2021-12-27] MEDS ORDERED: ONDANSETRON HCL 4 MG/2 ML VIAL IVP ONE
[2021-12-27] MEDS ORDERED: DiphenhydrAMINE HCL 50 MG/ML VIAL IVP ONE
[2021-12-27] MEDS ORDERED: ACETAMINOPHEN 500 MG TABLET PO ONE
[2021-12-27 00:15] LABS: BASOPHILS % (AUTO) 0.9 % (0.0-2.0); EOSINOPHILS % (AUTO) 2.7 % (1.0-6.0); HEMATOCRIT 42.3 % (41-53); HEMOGLOBIN 14.4 g/dL (13.5-17.5); LYMPHOCYTES # (AUTO) 2.6 K/uL (1.0-4.8); LYMPHOCYTES % (AUTO) 34.5 % (22.0-44.0); MEAN CORPUSCULAR HEMOGLOBIN 30.3 pg (26.0-34.0); MEAN CORPUSCULAR HGB CONC 34.1 G/dL (31.0-37.0); MEAN CORPUSCULAR VOLUME 89 fL (80-100); MONOCYTES # (AUTO) 0.8 K/uL (0.1-1.0); MONOCYTES % (AUTO) 11.4 % (2.0-9.0); NEUTROPHILS # (AUTO) 3.8 K/uL (1.8-7.7); NEUTROPHILS % (AUTO) 50.5 % (40.0-70.0); PLATELET COUNT (AUTO) 225 K/uL (150-450); RED BLOOD CELL COUNT(AUTO) 4.77 MIL/uL (4.50-5.90); RED CELL DISTRIBUTION WIDTH 14.3 % (11.5-14.5)
[2021-12-27 00:23] LABS: ANION GAP 2 mmol/L (8-16); CALCIUM, TOTAL 9.4 mg/dL (8.8-10.5); CARBON DIOXIDE 32 mmol/L (22-29); CHLORIDE 104 mmol/L (98-107); CREATININE 1.14 mg/dL (0.60-1.30); GLOMERULAR FILTR. RATE CALC > 60 mL/min (>60); GLUCOSE,RANDOM 104 mg/dL (70-110); POTASSIUM 3.5 mmol/L (3.5-5.1); SODIUM SERUM 138 mmol/L (136-145); UREA NITROGEN, BLOOD 10 mg/dL (7-18)
[2021-12-27 00:28] LABS: ALANINE AMINOTRANSFERASE 31 U/L (12-78); ALBUMIN 3.9 g/dL (3.4-5.0); ALKALINE PHOSPHATASE 77 U/L (46-116); ASPARTATE AMINOTRANSFERASE 16 U/L (15-37); BILIRUBIN,TOTAL 0.4 mg/dL (0.1-1.0); TOTAL PROTEIN, SERUM 7.2 g/dL (6.4-8.2)
[2021-12-27 00:49] LABS: COVID AG,FIA SOURCE NASOPHARYNGEAL
[2021-12-27 01:09] LABS: INFLUENZA TYPE A NEGATIVE FOR TYPE A (NEGATIVE); INFLUENZA TYPE B NEGATIVE FOR TYPE B (NEGATIVE)
== END 2021-12-27 02:14 | disposition home or self-care (01) ==
LOC: EMS 22:46
DX: G43.909 Migraine, unspecified, not intractable, without status migrainosus (principal); J45.909 Unspecified asthma, uncomplicated; Z20.822 Contact with and (suspected) exposure to COVID-19
CPT/HCPCS: 36415; 70450; 80053; 85025; 87426; 87804; 96374; 96375; 99284; J1200; J2405; J2765

== ENCOUNTER 2022-01-29 00:38 | Emergency (ER) | payer OTHER ==
[~2022-01-29] VITALS: Ht 193 cm; Wt 104.5 kg
[2022-01-29] MEDS ORDERED: IBUPROFEN 600 MG TABLET PO ONE (01:15)
[2022-01-29 03:00] VITALS: BP 129/84
== END 2022-01-29 03:25 | disposition home or self-care (01) ==
LOC: EMS 00:39
DX: S93.491A Sprain of other ligament of right ankle, initial encounter (principal); J45.909 Unspecified asthma, uncomplicated; W01.0XXA Fall on same level from slipping, tripping and stumbling without subsequent striking against object, initial encounter; Y93.89 Activity, other specified; Y92.89 Other specified places as the place of occurrence of the external cause; Y99.8 Other external cause status
CPT/HCPCS: 99283

== ENCOUNTER 2022-02-16 13:22 | Emergency (ER) | payer OTHER ==
[~2022-02-16] VITALS: Ht 193 cm; Wt 104.5 kg
[2022-02-16 13:33] VITALS: BP 148/81
[2022-02-16 14:35] LABS: COVID AG,FIA SOURCE NASAL SWAB
[2022-02-16 15:12] LABS: INFLUENZA TYPE A NEGATIVE FOR TYPE A (NEGATIVE); INFLUENZA TYPE B NEGATIVE FOR TYPE B (NEGATIVE)
[2022-02-16 15:20] LABS: RAPID GROUP A STREP NEGATIVE (NEGATIVE)
[2022-02-16] MEDS ORDERED: BENZ1LOZ50 PO (15:36)
[2022-02-16] MEDS ORDERED: DEXAMETHASONE 4 MG TABLET PO ONE (15:45)
[2022-02-16] MEDS ORDERED: KETOROLAC TROMETHAMINE 30 MG/ML VIAL IM ONE (15:45)
== END 2022-02-16 16:14 | disposition home or self-care (01) ==
LOC: EMS 13:22
DX: J02.8 Acute pharyngitis due to other specified organisms (principal); B97.89 Other viral agents as the cause of diseases classified elsewhere; J45.909 Unspecified asthma, uncomplicated; Z20.822 Contact with and (suspected) exposure to COVID-19
CPT/HCPCS: 99283; 87426; 87430; 87804; 96372; J8540; J1885

== ENCOUNTER 2022-02-20 00:24 | Emergency (ER) | payer OTHER ==
[~2022-02-20] VITALS: Ht 188 cm; Wt 100.0 kg
[~2022-02-20 00:24] MED LIST changes: +BENZ1LOZ50 PO; -METO-296 PO
[2022-02-20 00:28] VITALS: BP 129/83
[2022-02-20] MEDS ORDERED: CORTSOL AD (00:43)
[2022-02-20] MEDS ORDERED: AMOX1TAB16 PO (00:43)
[2022-02-20] MEDS ORDERED: IBUPROFEN 600 MG TABLET PO ONE (00:45)
[2022-02-20] MEDS ORDERED: NEOMYCIN/POLYMYXIN B/HYDROCORT 10 ML OTIC SOLUTION AD ONE (00:45)
[2022-02-20] MEDS ORDERED: AMOX TR/POT CLAV 875 MG/125 MG TABLET PO ONE (00:45)
== END 2022-02-20 01:40 | disposition home or self-care (01) ==
LOC: EMS 00:25
DX: H60.91 Unspecified otitis externa, right ear (principal); H66.91 Otitis media, unspecified, right ear; J45.909 Unspecified asthma, uncomplicated; Z79.899 Other long term (current) drug therapy
CPT/HCPCS: 99284; Z7502; Z7610

== ENCOUNTER 2022-04-07 03:06 | Emergency (ER) | payer OTHER ==
[~2022-04-07] VITALS: Ht 188 cm; Wt 85.0 kg
[~2022-04-07 03:06] MED LIST changes: +AMOX1TAB16 PO; -BENZ1LOZ50 PO; +BENZ1LOZ77 PO; +CORTSOL AD
[2022-04-07] MEDS ORDERED: KETOROLAC TROMETHAMINE 30 MG/ML VIAL IM ONE (04:45)
[2022-04-07] MEDS ORDERED: AMOXICILLIN TRIHYDRATE 250 MG CAPSULE PO ONE ×2 (04:45→05:00)
[2022-04-07] MEDS ORDERED: AMOX250C4 PO (04:49)
[2022-04-07 05:07] VITALS: BP 122/78
== END 2022-04-07 05:08 | disposition home or self-care (01) ==
LOC: EMS 03:10
DX: S90.112A Contusion of left great toe without damage to nail, initial encounter (principal); J45.909 Unspecified asthma, uncomplicated; X58.XXXA Exposure to other specified factors, initial encounter; Y93.89 Activity, other specified; Y92.89 Other specified places as the place of occurrence of the external cause; Y99.8 Other external cause status
CPT/HCPCS: 99283; 96372; J1885

== ENCOUNTER 2022-08-27 04:19 | Emergency (ER) | payer OTHER ==
[~2022-08-27] VITALS: Ht 193 cm; Wt 104.5 kg
[~2022-08-27 04:19] MED LIST changes: +AMOX250C4 PO
[2022-08-27 06:24] LABS: BASOPHILS % (AUTO) 0.8 % (0.0-2.0); EOSINOPHILS % (AUTO) 2.7 % (1.0-6.0); HEMATOCRIT 42.6 % (41-53); HEMOGLOBIN 14.8 g/dL (13.5-17.5); LYMPHOCYTES # (AUTO) 2.5 K/uL (1.0-4.8); LYMPHOCYTES % (AUTO) 44.9 % (22.0-44.0); MEAN CORPUSCULAR HEMOGLOBIN 31.1 pg (26.0-34.0); MEAN CORPUSCULAR HGB CONC 34.7 G/dL (31.0-37.0); MEAN CORPUSCULAR VOLUME 90 fL (80-100); MONOCYTES # (AUTO) 0.5 K/uL (0.1-1.0); MONOCYTES % (AUTO) 9.7 % (2.0-9.0); NEUTROPHILS # (AUTO) 2.3 K/uL (1.8-7.7); NEUTROPHILS % (AUTO) 41.9 % (40.0-70.0); PLATELET COUNT (AUTO) 216 K/uL (150-450); RED BLOOD CELL COUNT(AUTO) 4.75 MIL/uL (4.50-5.90); RED CELL DISTRIBUTION WIDTH 13.8 % (11.5-14.5)
[2022-08-27] MEDS ORDERED: MORPHINE SULFATE 2 MG/ML SYRINGE IVP ONE (06:30)
[2022-08-27] MEDS ORDERED: ONDANSETRON HCL 4 MG/2 ML VIAL IVP ONE (06:30)
[2022-08-27] MEDS ORDERED: KETOROLAC TROMETHAMINE 30 MG/ML VIAL IVP ONE (06:30)
[2022-08-27] MEDS ORDERED: FAMOTIDINE 10 MG/ML 2 ML VIAL IVP ONE (06:30)
[2022-08-27] MEDS ORDERED: MAG HYDROX/AL HYDROX/SIMETH 30 ML SUSP UDCUP PO ONE (06:30)
[2022-08-27] MEDS ORDERED: SODIUM CHLORIDE 0.9% 1,000 ML IV ONE (06:30)
[2022-08-27 06:36] LABS: ANION GAP 6 mmol/L (8-16); CALCIUM, TOTAL 9.6 mg/dL (8.8-10.5); CARBON DIOXIDE 30 mmol/L (22-29); CHLORIDE 99 mmol/L (98-107); GLOMERULAR FILTR. RATE CALC > 60 mL/min (>60); GLUCOSE,RANDOM 101 mg/dL (70-110); POTASSIUM 3.4 mmol/L (3.5-5.1); SODIUM SERUM 135 mmol/L (136-145); UREA NITROGEN, BLOOD 11 mg/dL (7-18)
[2022-08-27 06:40] LABS: ALANINE AMINOTRANSFERASE 21 U/L (12-78); ALKALINE PHOSPHATASE 92 U/L (46-116); ASPARTATE AMINOTRANSFERASE 21 U/L (15-37); BILIRUBIN,TOTAL 0.4 mg/dL (0.1-1.0); LIPASE 131 U/L (73-393); TOTAL PROTEIN, SERUM 6.9 g/dL (6.4-8.2)
[2022-08-27] MEDS ORDERED: IOHEXOL 350 MG/ML 100 ML VIAL ONE (06:43)
[2022-08-27] MEDS ORDERED: SODIUM CHLORIDE 0.9% 100 ML ONE (06:43)
[2022-08-27 07:43] VITALS: BP 129/81
[2022-08-27] MEDS ORDERED: ONDA-104 PO (08:10)
== END 2022-08-27 08:28 | disposition home or self-care (01) ==
LOC: EMS 04:20
DX: R10.9 Unspecified abdominal pain (principal); R11.2 Nausea with vomiting, unspecified; J45.909 Unspecified asthma, uncomplicated; K85.90 Acute pancreatitis without necrosis or infection, unspecified
CPT/HCPCS: 99285; 74177; 96374; 96375; 76705; 96361; 80053; 83690; 85025; G0480; J3490; J1885; J2270; J2405; Q9967; J7030; J7050

== ENCOUNTER 2022-11-23 22:27 | Emergency (ER) | payer OTHER ==
[~2022-11-23] VITALS: Ht 193 cm; Wt 106.0 kg
[~2022-11-23 22:27] MED LIST changes: +ONDA-104 PO
[2022-11-23] MEDS ORDERED: KETOROLAC TROMETHAMINE 30 MG/ML VIAL IM ONE (23:30)
[2022-11-24 00:50] VITALS: BP 119/56
== END 2022-11-24 02:18 | disposition home or self-care (01) ==
LOC: EMS 22:28
DX: S83.91XA Sprain of unspecified site of right knee, initial encounter (principal); X50.0XXA Overexertion from strenuous movement or load, initial encounter; Y93.89 Activity, other specified; Y92.89 Other specified places as the place of occurrence of the external cause; Y99.8 Other external cause status
CPT/HCPCS: 99283; 29505; 73562; 96372; J1885

== ENCOUNTER 2023-02-02 20:35 | Emergency (ER) | payer OTHER | END 2023-02-02 21:10 | disposition left against medical advice (07) | LOC: EMS 20:36 | DX: Z53.21 Procedure and treatment not carried out due to patient leaving prior to being seen by health care provider (principal) ==

== ENCOUNTER 2023-02-13 22:46 | Emergency (ER) | payer OTHER ==
[~2023-02-13] VITALS: Ht 193 cm; Wt 114.0 kg
[2023-02-14] MEDS ORDERED: PERTUSS(ACELL),DIPH,TET VAC/PF 0.5 ML SYRINGE IM. ONE
[2023-02-14 00:30] VITALS: BP 145/79; PULSE 70; RESP 15; TEMP 97.3
== END 2023-02-14 01:12 | disposition home or self-care (01) ==
LOC: EMS 22:47
DX: S01.511A Laceration without foreign body of lip, initial encounter (principal); Z79.899 Other long term (current) drug therapy; Y04.0XXA Assault by unarmed brawl or fight, initial encounter; Y93.89 Activity, other specified; Y92.89 Other specified places as the place of occurrence of the external cause; Y99.8 Other external cause status
CPT/HCPCS: 12011; 90471; 90715; 99283

== ENCOUNTER 2023-05-05 20:23 | Emergency (ER) | payer MEDICAID, OTHER ==
[~2023-05-05] VITALS: Ht 193 cm; Wt 98.0 kg
[~2023-05-05 20:23] MED LIST changes: -BENZ1LOZ77 PO; +CEPACLZ PO
[2023-05-05 20:31] VITALS: BP 112/63; PULSE 65; RESP 18; TEMP 98.7
[2023-05-05] MEDS ORDERED: TraMADol HCL 50 MG TABLET PO ONE (22:15)
== END 2023-05-05 22:28 | disposition home or self-care (01) ==
LOC: EMS 20:23
DX: S60.032A Contusion of left middle finger without damage to nail, initial encounter (principal); W23.0XXA Caught, crushed, jammed, or pinched between moving objects, initial encounter; Y93.89 Activity, other specified; Y92.89 Other specified places as the place of occurrence of the external cause; Y99.8 Other external cause status
CPT/HCPCS: 99283

== ENCOUNTER 2023-06-14 21:36 | Emergency (ER) | payer MEDICAID ==
[~2023-06-14] VITALS: Ht 193 cm; Wt 102.3 kg
[2023-06-14 22:05] LABS: BASOPHILS % (AUTO) 0.7 % (0.0-2.0); EOSINOPHILS % (AUTO) 2.9 % (1.0-6.0); HEMATOCRIT 40.4 % (41-53); HEMOGLOBIN 13.8 g/dL (13.5-17.5); LYMPHOCYTES # (AUTO) 1.8 K/uL (1.0-4.8); LYMPHOCYTES % (AUTO) 27.6 % (22.0-44.0); MEAN CORPUSCULAR HEMOGLOBIN 31.2 pg (26.0-34.0); MEAN CORPUSCULAR HGB CONC 34.3 G/dL (31.0-37.0); MEAN CORPUSCULAR VOLUME 91 fL (80-100); MONOCYTES # (AUTO) 0.6 K/uL (0.1-1.0); MONOCYTES % (AUTO) 8.7 % (2.0-9.0); NEUTROPHILS % (AUTO) 60.1 % (40.0-70.0); PLATELET COUNT (AUTO) 240 K/uL (150-450); RED BLOOD CELL COUNT(AUTO) 4.44 MIL/uL (4.50-5.90); RED CELL DISTRIBUTION WIDTH 13.6 % (11.5-14.5); WHITE BLOOD COUNT (AUTO) 6.6 K/uL (4.5-11.0)
[2023-06-14 22:15] LABS: ANION GAP 3 mmol/L (8-16); CALCIUM, TOTAL 9.7 mg/dL (8.8-10.5); CARBON DIOXIDE 31 mmol/L (22-29); CHLORIDE 105 mmol/L (98-107); CREATININE 1.09 mg/dL (0.60-1.30); GLOMERULAR FILTR. RATE CALC > 60 mL/min (>60); GLUCOSE,RANDOM 108 mg/dL (70-110); POTASSIUM 3.5 mmol/L (3.5-5.1); SODIUM SERUM 139 mmol/L (136-145); UREA NITROGEN, BLOOD 7 mg/dL (7-18)
[2023-06-14 22:23] LABS: ALANINE AMINOTRANSFERASE 25 U/L (12-78); ALBUMIN 3.9 g/dL (3.4-5.0); ALKALINE PHOSPHATASE 83 U/L (46-116); ASPARTATE AMINOTRANSFERASE 17 U/L (15-37); BILIRUBIN,TOTAL 0.3 mg/dL (0.1-1.0); LIPASE 39 U/L (16-77); TOTAL PROTEIN, SERUM 7.3 g/dL (6.4-8.2); TROPONIN I-HIGH SENSITIVITY 10 ng/L (<76)
[2023-06-14] MEDS ORDERED: IOHEXOL 9 MG/ML 500 ML BOTTLE PO ONE (23:00)
[2023-06-14] MEDS ORDERED: SODIUM CHLORIDE 0.9% 1,000 ML IV ONE (23:00)
[2023-06-14] MEDS ORDERED: ONDANSETRON HCL 4 MG/2 ML VIAL IVP ONE (23:00)
[2023-06-14] MEDS ORDERED: MORPHINE SULFATE 4 MG/ML SYRINGE IVP ONE (23:00)
[2023-06-14 23:59] VITALS: TEMP 97.3
[2023-06-15] MEDS ORDERED: MAG30ORA11 PO (05:48)
[2023-06-15] MEDS ORDERED: OMEP20 PO (05:48)
[2023-06-15] MEDS ORDERED: ONDA-104 PO (05:48)
[2023-06-15] MEDS ORDERED: ACET-66 PO (05:48)
[2023-06-15 07:06] VITALS: BP 123/69; PULSE 68; RESP 16
== END 2023-06-15 07:11 | disposition home or self-care (01) ==
LOC: EMS 21:39
DX: R10.30 Lower abdominal pain, unspecified (principal)
CPT/HCPCS: 99285; 74176; 96374; 96361; 96375; 80053; 83690; 84484; 85025; 36415; 93005; J2270; J2405; Q9967; J7030

== ENCOUNTER 2023-09-07 01:41 | Inpatient (IN) | payer SELFPAY ==
[~2023-09-07] VITALS: Ht 193 cm; Wt 110.0 kg
[~2023-09-07 01:41] MED LIST changes: +ACET-66 PO; +MAG30ORA11 PO; +OMEP20 PO
[2023-09-07] MEDS ORDERED: ACETAMINOPHEN 325 MG TABLET PO ONE (02:00)
[2023-09-07] MEDS: ACETAMINOPHEN 500 MG TABLET PO ONE (03:00)
[2023-09-07 03:11] LABS: BASOPHILS % (AUTO) 0.7 % (0.0-2.0); EOSINOPHILS % (AUTO) 0.8 % (1.0-6.0); HEMATOCRIT 43.2 % (41-53); HEMOGLOBIN 14.7 g/dL (13.5-17.5); LYMPHOCYTES # (AUTO) 1.4 K/uL (1.0-4.8); LYMPHOCYTES % (AUTO) 10.2 % (22.0-44.0); MEAN CORPUSCULAR HEMOGLOBIN 30.8 pg (26.0-34.0); MEAN CORPUSCULAR HGB CONC 34.1 G/dL (31.0-37.0); MEAN CORPUSCULAR VOLUME 90 fL (80-100); MONOCYTES # (AUTO) 0.9 K/uL (0.1-1.0); MONOCYTES % (AUTO) 6.4 % (2.0-9.0); NEUTROPHILS # (AUTO) 11.5 K/uL (1.8-7.7); NEUTROPHILS % (AUTO) 81.9 % (40.0-70.0); PLATELET COUNT (AUTO) 216 K/uL (150-450); RED BLOOD CELL COUNT(AUTO) 4.78 MIL/uL (4.50-5.90); RED CELL DISTRIBUTION WIDTH 14.5 % (11.5-14.5)
[2023-09-07 03:12] LABS: COVID AG,FIA SOURCE NASAL SWAB
[2023-09-07 03:27] LABS: SARS-COV2 (COVID) ANTIGEN,FIA Negative (Negative)
[2023-09-07 03:35] LABS: RAPID GROUP A STREP NEGATIVE (NEGATIVE)
[2023-09-07 03:36] LABS: INFLUENZA TYPE A NEGATIVE FOR TYPE A (NEGATIVE); INFLUENZA TYPE B NEGATIVE FOR TYPE B (NEGATIVE)
[2023-09-07 03:39] LABS: ANION GAP 10 mmol/L (8-16); CALCIUM, TOTAL 9.8 mg/dL (8.8-10.5); CARBON DIOXIDE 27 mmol/L (22-29); CHLORIDE 100 mmol/L (98-107); CREATININE 1.31 mg/dL (0.60-1.30); GLOMERULAR FILTR. RATE CALC > 60 mL/min (>60); GLUCOSE,RANDOM 108 mg/dL (70-110); POTASSIUM 3.5 mmol/L (3.5-5.1); SODIUM SERUM 137 mmol/L (136-145); UREA NITROGEN, BLOOD 10 mg/dL (7-18)
[2023-09-07 03:45] LABS: ALANINE AMINOTRANSFERASE 24 U/L (12-78); ALBUMIN 4.1 g/dL (3.4-5.0); ALKALINE PHOSPHATASE 83 U/L (46-116); ASPARTATE AMINOTRANSFERASE 15 U/L (15-37); BILIRUBIN,TOTAL 0.7 mg/dL (0.1-1.0); TOTAL PROTEIN, SERUM 7.8 g/dL (6.4-8.2)
[2023-09-07] MEDS: POVIDONE-IODINE 10% 120 ML SOLUTION TP ONE (04:27)
[2023-09-07] MEDS: SODIUM CHLORIDE 0.9% 1,000 ML IV ONE (04:28)
[2023-09-07] MEDS: KETOROLAC TROMETHAMINE 30 MG/ML VIAL IVP ONE (04:33)
[2023-09-07] MEDS: CefTRIAXone SODIUM 2 GM in DEXTROSE 5%-WATER 50 ML IV ONE (04:57)
[2023-09-07 05:28] LABS: LACTIC ACID 1.3 mmol/L (0.4-2.0)
[2023-09-07 05:34] LABS: GLUCOSE, CSF 66 mg/dL (50-80); TOTAL PROTEIN, CSF 39 mg/dL (15-45)
[2023-09-07 06:52] LABS: CSF TOTAL VOLUME 2.3 mL
[2023-09-07 06:53] LABS: APPEARANCE,CSF CLEAR (CLEAR); COLOR,CSF COLORLESS (COLORLESS); CSF TUBE NUMBER 1; LYMPHOCYTES1,CSF 100 %
[2023-09-07 06:54] LABS: APPEARANCE2,CSF CLEAR (CLEAR); COLOR2,CSF COLORLESS (COLORLESS); CSF 2ND TUBE NUMBER 4; LYMPHOCYTES2,CSF 100 %; MONOCYTES1,CSF 0 %; MONOCYTES2,CSF 0 %; NEUTROPHILS1,CSF 0 %; NEUTROPHILS2,CSF 0 %
[2023-09-07 07:06] LABS: OTHER CELLS,CSF 2ND 0
[2023-09-07] MEDS: AZITHROMYCIN 500 MG/NS 250 ML IV ONE (07:32)
[2023-09-07 09:39] LABS: APPEARANCE,URINE CLEAR (CLEAR); BILIRUBIN,URINE NEGATIVE (NEGATIVE); COLOR,URINE LIGHT YELLOW (YELLOW); GLUCOSE, URINE (UA) NEGATIVE (NEGATIVE); KETONES,URINE NEGATIVE (NEGATIVE); LEUKOCYTE ESTERASE ,URINE NEGATIVE (NEGATIVE); NITRATE,URINE NEGATIVE (NEGATIVE); OCCULT BLOOD,URINE NEGATIVE (NEGATIVE); PROTEIN,URINE NEGATIVE (NEGATIVE); SPECIFIC GRAVITIY, URINE 1.011 (1.003-1.030); UROBILINOGEN,URINE <=1.0 mg/dL (<=1.0)
[2023-09-07 09:53] LABS: ALCOHOL, URINE DRUG SCREEN NEGATIVE (NEGATIVE); AMPHET/METH SCREEN,URINE NEGATIVE (NEGATIVE); BARBITURATE SCREEN, URINE NEGATIVE (NEGATIVE); BENZODIAZEPINES SCREEN,URINE NEGATIVE (NEGATIVE); CANNABINOID SCREEN,URINE NEGATIVE (NEGATIVE); COCAINE SCREEN,URINE NEGATIVE (NEGATIVE); METHADONE SCREEN, URINE NEGATIVE (NEGATIVE); OPIATE SCREEN,URINE NEGATIVE (NEGATIVE); PHENCYCLIDINE SCREEN,URINE NEGATIVE (NEGATIVE)
[2023-09-07 09:56] LABS: RBC,URINE 0-2 /HPF (0-2)
[2023-09-07 09:57] LABS: BACTERIA,URINE None Seen /HPF (None Seen); WBC,URINE 0-2 /HPF (0-5)
[2023-09-07] MEDS ORDERED: MAGNESIUM HYDROXIDE SUSPENSION 30 ML UDCUP PO PRN (13:30)
[2023-09-07] MEDS ORDERED: IPRATROPIUM BROMIDE 0.5 MG/2.5 ML NEB SOLUTION NEB PRN (13:30)
[2023-09-07] MEDS ORDERED: BISACODYL 10 MG RECTAL RECTAL SUPPOSITORY PR PRN (13:30)
[2023-09-07] MEDS ORDERED: ZOLPIDEM TARTRATE 5 MG TABLET PO PRN (13:30)
[2023-09-07] MEDS ORDERED: ALBUTEROL SULFATE 2.5 MG/0.5 ML NEB SOLUTION NEB PRN (13:30)
[2023-09-07 13:50] VITALS: BP 113/82; PULSE 62; RESP 17; TEMP 97.9
[2023-09-07] MEDS: HEPARIN SODIUM,PORCINE 5,000 UNITS/ML VIAL SQ SCH (16:35)
[2023-09-07] MEDS ORDERED: SODIUM CHLORIDE 0.9% 500 ML IV ONE (17:14)
[2023-09-07] MEDS ORDERED: SODIUM CHLORIDE 0.9% 1,000 ML ONE (17:19)
[2023-09-07] MEDS: CefTRIAXone SODIUM 2 GM in DEXTROSE 5%-WATER 50 ML IV SCH (17:25)
[2023-09-07] MEDS: SODIUM CHLORIDE 0.9% 1,000 ML IV SCH (17:35)
[2023-09-07] MEDS: ACYCLOVIR 1,000 MG in DEXTROSE 5%-WATER 150 ML IV SCH (18:36)
[2023-09-07 18:46] LABS: INFLUENZA A-RTPCR,COMBO NEGATIVE (NEGATIVE); INFLUENZA B-RTPCR,COMBO NEGATIVE (NEGATIVE); RESPIRATORY SYNCYTIAL VRS-PCR NEGATIVE (NEGATIVE); SARS COVID19 RTPCR, COMBO NEGATIVE (NEGATIVE)
[2023-09-07 19:49] VITALS: BP 112/68; PULSE 67; RESP 20; TEMP 97.7
[2023-09-08] MEDS: HYDROCODONE/ACETAMINOPHEN 5-325 MG TABLET PO PRN (01:33)
[2023-09-08 04:10] VITALS: BP 111/58; PULSE 62; RESP 20; TEMP 97.8
[2023-09-08 07:32] LABS: BASOPHILS % (AUTO) 0.7 % (0.0-2.0); EOSINOPHILS % (AUTO) 3.1 % (1.0-6.0); HEMATOCRIT 39.1 % (41-53); HEMOGLOBIN 13.3 g/dL (13.5-17.5); LYMPHOCYTES # (AUTO) 2.7 K/uL (1.0-4.8); LYMPHOCYTES % (AUTO) 34.8 % (22.0-44.0); MEAN CORPUSCULAR HGB CONC 34.1 G/dL (31.0-37.0); MEAN CORPUSCULAR VOLUME 91 fL (80-100); MONOCYTES # (AUTO) 0.8 K/uL (0.1-1.0); MONOCYTES % (AUTO) 10.9 % (2.0-9.0); NEUTROPHILS # (AUTO) 3.9 K/uL (1.8-7.7); NEUTROPHILS % (AUTO) 50.5 % (40.0-70.0); PLATELET COUNT (AUTO) 192 K/uL (150-450); RED BLOOD CELL COUNT(AUTO) 4.29 MIL/uL (4.50-5.90); RED CELL DISTRIBUTION WIDTH 13.9 % (11.5-14.5); WHITE BLOOD COUNT (AUTO) 7.7 K/uL (4.5-11.0)
[2023-09-08 07:37] LABS: ANION GAP 7 mmol/L (8-16); CALCIUM, TOTAL 8.9 mg/dL (8.8-10.5); CARBON DIOXIDE 27 mmol/L (22-29); CHLORIDE 105 mmol/L (98-107); GLOMERULAR FILTR. RATE CALC > 60 mL/min (>60); GLUCOSE,RANDOM 113 mg/dL (70-110); POTASSIUM 3.7 mmol/L (3.5-5.1); SODIUM SERUM 139 mmol/L (136-145); UREA NITROGEN, BLOOD 12 mg/dL (7-18)
[2023-09-08] MEDS: PANTOPRAZOLE SODIUM 40 MG DR TABLET PO SCH (07:54)
[2023-09-08 08:24] VITALS: BP 114/61; PULSE 59; RESP 18; TEMP 97.7
[2023-09-08] MEDS: MORPHINE SULFATE 2 MG/ML SYRINGE IVP PRN (17:03)
[2023-09-08 17:10] VITALS: BP 113/62; PULSE 55; RESP 20; TEMP 97.6
[2023-09-08] MEDS ORDERED: OxyCODONE HCL/ACETAMINOPHEN 10-325 MG TABLET PO PRN (18:30)
[2023-09-08 19:47] VITALS: BP 108/50; PULSE 60; RESP 20; TEMP 98.1
[2023-09-09] MEDS: OxyCODONE HCL/ACETAMINOPHEN 10-325 MG TABLET PO PRN (02:50)
[2023-09-09 04:15] VITALS: BP 115/65; PULSE 57; RESP 18; TEMP 97.7
[2023-09-09 08:03] VITALS: BP 121/68; PULSE 64; RESP 19; TEMP 97.9
[2023-09-09] MEDS: ACETAMINOPHEN 325 MG TABLET PO PRN (15:10)
[2023-09-09] MEDS: ONDANSETRON HCL 4 MG/2 ML VIAL IVP PRN (15:11)
[2023-09-09 16:15] VITALS: BP 126/75; PULSE 64; RESP 19; TEMP 97.9
[2023-09-09] MEDS: BACLOFEN 10 MG TABLET PO SCH (16:36)
[2023-09-09] MEDS: DOXYCYCLINE HYCLATE 100 MG in DEXTROSE 5%-WATER 100 ML IV SCH (18:47)
[2023-09-09 20:19] VITALS: BP 135/81; PULSE 60; RESP 18; TEMP 97.8
[2023-09-10 04:13] VITALS: BP 132/76; PULSE 52; RESP 18; TEMP 97.6
[2023-09-10 12:29] VITALS: BP 107/56; PULSE 66; RESP 18; TEMP 98.2
[2023-09-10] MEDS: DOXYCYCLINE HYCLATE 100 MG TABLET PO SCH (13:25)
[2023-09-10 19:15] VITALS: BP 149/94; PULSE 62; RESP 20; TEMP 97.9
[2023-09-11 01:08] VITALS: BP 126/74; PULSE 55; RESP 18; TEMP 98.5
[2023-09-11 04:38] VITALS: BP 123/68; PULSE 64; RESP 18; TEMP 98
[2023-09-11 07:44] VITALS: BP 105/48; PULSE 60; RESP 18; TEMP 98.5
[2023-09-11 09:07] LABS: HIV 1-2 SCREEN 4TH GEN W/RFLX Non Reactive (Non Reactive)
== END 2023-09-11 11:20 | disposition left against medical advice (07) | DRG 872 ==
LOC: EMS 01:41 → 6S 09:56
PROVIDERS: ADMIT Hospitalist; ATTEND Hospitalist
PROC: 009U3ZX Drainage of Spinal Canal, Percutaneous Approach, Diagnostic (ICD-10-PCS; principal; 2023-09-07)
DX: A41.9 Sepsis, unspecified organism (principal); M43.6 Torticollis; Z20.822 Contact with and (suspected) exposure to COVID-19; Z53.21 Procedure and treatment not carried out due to patient leaving prior to being seen by health care provider; E86.0 Dehydration; Z79.899 Other long term (current) drug therapy
CPT/HCPCS: 0241U; 70450; 71045; 71250; 72125; 80048; 80053; 80307; 81001; 82945; 83605; 84145; 84157; 85025; 86308; 86592; 86694; 86735; 86738; 86765; 86787; 86788; 86789; 87040; 87075; 87205; 87389; 87430; 87804; 89051; 93306; 93880; 99291; G0378; J0133; J0456; J0696; J1644; J1885; J2270; J2405; J3490; J7030; J7040; J7060; 36415-L1; 36415-TC; 87070

== ENCOUNTER 2023-12-27 12:35 | Emergency (ER) | payer MEDICAID, OTHER ==
[~2023-12-27] VITALS: Ht 182.9 cm; Wt 110.0 kg
[~2023-12-27 12:35] MED LIST changes: +AMOX-457 PO; -AMOX1TAB16 PO
[2023-12-27 12:50] VITALS: TEMP 98.4
[2023-12-27] MEDS: TraMADol HCL 50 MG TABLET PO ONE (14:39)
[2023-12-27 15:13] VITALS: BP 122/72; PULSE 65; RESP 17
[2023-12-27] MEDS: KETOROLAC TROMETHAMINE 30 MG/ML VIAL IM ONE (15:18)
== END 2023-12-27 15:50 | disposition home or self-care (01) ==
LOC: EMS 12:38
DX: S82.001A Unspecified fracture of right patella, initial encounter for closed fracture (principal); X58.XXXA Exposure to other specified factors, initial encounter; Y93.89 Activity, other specified; Y92.89 Other specified places as the place of occurrence of the external cause; Y99.8 Other external cause status
CPT/HCPCS: 99283; 29505; 73562; 96372; J1885

== ENCOUNTER 2024-02-09 19:48 | Emergency (ER) | payer OTHER ==
[~2024-02-09] VITALS: Ht 193 cm; Wt 99.1 kg
[~2024-02-09 19:48] MED LIST changes: -AMOX-457 PO; -AMOX250C4 PO; -CEPACLZ PO; -CORTSOL AD
[2024-02-09 19:52] VITALS: BP 119/64; PULSE 70; RESP 16; TEMP 98
== END 2024-02-09 21:31 | disposition left against medical advice (07) ==
LOC: EMS 19:48
DX: M25.561 Pain in right knee (principal); Z53.21 Procedure and treatment not carried out due to patient leaving prior to being seen by health care provider
CPT/HCPCS: 73564-TC

== ENCOUNTER 2024-08-04 21:25 | Emergency (ER) | payer OTHER ==
[~2024-08-04] VITALS: Ht 193 cm; Wt 102.7 kg
[2024-08-04 22:49] VITALS: TEMP 98.3
[2024-08-04 23:16] LABS: BASOPHILS % (AUTO) 0.8 % (0.0-2.0); EOSINOPHILS % (AUTO) 4.8 % (1.0-6.0); HEMATOCRIT 43.6 % (41-53); HEMOGLOBIN 14.3 g/dL (13.5-17.5); LYMPHOCYTES # (AUTO) 2.7 K/uL (1.0-4.8); LYMPHOCYTES % (AUTO) 37.5 % (22.0-44.0); MEAN CORPUSCULAR HEMOGLOBIN 30.5 pg (26.0-34.0); MEAN CORPUSCULAR HGB CONC 32.9 G/dL (31.0-37.0); MEAN CORPUSCULAR VOLUME 93 fL (80-100); MONOCYTES # (AUTO) 0.6 K/uL (0.1-1.0); MONOCYTES % (AUTO) 8.6 % (2.0-9.0); NEUTROPHILS # (AUTO) 3.5 K/uL (1.8-7.7); NEUTROPHILS % (AUTO) 48.3 % (40.0-70.0); PLATELET COUNT (AUTO) 231 K/uL (150-450); RED CELL DISTRIBUTION WIDTH 14.6 % (11.5-14.5); WHITE BLOOD COUNT (AUTO) 7.3 K/uL (4.5-11.0)
[2024-08-04 23:22] LABS: ANION GAP 9 mmol/L (8-16); CARBON DIOXIDE 30 mmol/L (22-29); CHLORIDE 105 mmol/L (98-107); CREATININE 1.06 mg/dL (0.60-1.30); GLOMERULAR FILTR. RATE CALC > 60 mL/min (>60); GLUCOSE,RANDOM 105 mg/dL (70-110); LIPASE 41 U/L (16-77); SODIUM SERUM 144 mmol/L (136-145); UREA NITROGEN, BLOOD 8 mg/dL (7-18)
[2024-08-05] MEDS: ACETAMINOPHEN 500 MG TABLET PO ONE (04:28)
[2024-08-05] MEDS: METOCLOPRAMIDE HCL 10 MG TABLET PO ONE (04:28)
[2024-08-05] MEDS: KETOROLAC TROMETHAMINE 30 MG/ML VIAL IM ONE (04:28)
[2024-08-05 04:36] VITALS: BP 119/74; PULSE 76; RESP 16; O2SAT 97
[2024-08-05 04:36] LABS: COVID AG,FIA SOURCE NASAL SWAB
[2024-08-05 04:48] LABS: SARS-COV2 (COVID) ANTIGEN,FIA Negative (Negative)
[2024-08-05 04:50] LABS: INFLUENZA TYPE A NEGATIVE FOR TYPE A (NEGATIVE); INFLUENZA TYPE B NEGATIVE FOR TYPE B (NEGATIVE)
[2024-08-05] MEDS ORDERED: METO5TAB95 PO (05:41)
[2024-08-12] MEDS ORDERED: OMEP20 PO (15:40)
[2024-08-12] MEDS ORDERED: MAG30ORA11 PO (15:40)
[2024-08-12] MEDS ORDERED: ONDA-104 PO (15:40)
== END 2024-08-05 08:01 | disposition home or self-care (01) ==
LOC: EMS 21:44
DX: J06.9 Acute upper respiratory infection, unspecified (principal); R51.9 Headache, unspecified; B97.89 Other viral agents as the cause of diseases classified elsewhere; Z79.899 Other long term (current) drug therapy; Z20.822 Contact with and (suspected) exposure to COVID-19
CPT/HCPCS: 99283; 87426; 80048; 83690; 85025; 87804; 36415; 96372; J1885

== ENCOUNTER 2024-08-23 23:46 | Emergency (ER) | payer OTHER ==
[~2024-08-23] VITALS: Ht 190.5 cm; Wt 100.0 kg
[~2024-08-23 23:46] MED LIST changes: -ACET-66 PO
[2024-08-23 23:56] VITALS: BP 121/75; PULSE 64; RESP 18; TEMP 99; O2SAT 99
[2024-08-24] MEDS ORDERED: IBUP-1492 PO (01:04)
[2024-08-24] MEDS ORDERED: AMOX-457 PO (01:04)
[2024-08-24] MEDS ORDERED: ONDA-104 PO (01:04)
[2024-08-24] MEDS ORDERED: ACET-3385 PO (01:04)
[2024-08-24] MEDS: ONDANSETRON 4 MG TABLET PO ONE (01:14)
[2024-08-24] MEDS: AMOX TR/POT CLAV 875 MG/125 MG TABLET PO ONE (01:15)
[2024-08-24] MEDS: ACETAMINOPHEN 500 MG TABLET PO ONE (01:15)
== END 2024-08-24 02:12 | disposition home or self-care (01) ==
LOC: EMS 23:49
DX: H66.93 Otitis media, unspecified, bilateral (principal); R09.81 Nasal congestion; Z79.899 Other long term (current) drug therapy
CPT/HCPCS: 99284; Q0162

== ENCOUNTER 2024-12-08 15:46 | Inpatient (IN) | payer OTHER ==
[~2024-12-08] VITALS: Ht 193 cm; Wt 106.8 kg
[~2024-12-08 15:46] MED LIST changes: +ACET-3385 PO; +AMOX-457 PO; +IBUP-1492 PO; +OMEP-148 PO; -OMEP20 PO
[2024-12-08 16:57] LABS: EOSINOPHILS % (AUTO) 2.3 % (1.0-6.0); HEMATOCRIT 43.2 % (41-53); HEMOGLOBIN 14.5 g/dL (13.5-17.5); LYMPHOCYTES # (AUTO) 1.8 K/uL (1.0-4.8); LYMPHOCYTES % (AUTO) 32.2 % (22.0-44.0); MEAN CORPUSCULAR HEMOGLOBIN 30.2 pg (26.0-34.0); MEAN CORPUSCULAR HGB CONC 33.6 G/dL (31.0-37.0); MEAN CORPUSCULAR VOLUME 90 fL (80-100); MONOCYTES # (AUTO) 0.6 K/uL (0.1-1.0); MONOCYTES % (AUTO) 10.1 % (2.0-9.0); NEUTROPHILS # (AUTO) 3.1 K/uL (1.8-7.7); NEUTROPHILS % (AUTO) 54.4 % (40.0-70.0); PLATELET COUNT (AUTO) 221 K/uL (150-450); WHITE BLOOD COUNT (AUTO) 5.7 K/uL (4.5-11.0)
[2024-12-08 16:58] LABS: ANION GAP 6 mmol/L (8-16); CALCIUM, TOTAL 9.1 mg/dL (8.8-10.5); CARBON DIOXIDE 29 mmol/L (22-29); CHLORIDE 105 mmol/L (98-107); CREATININE 1.15 mg/dL (0.60-1.30); GLOMERULAR FILTR. RATE CALC > 60 mL/min (>60); GLUCOSE,RANDOM 91 mg/dL (70-110); POTASSIUM 3.5 mmol/L (3.5-5.1); SODIUM SERUM 140 mmol/L (136-145); UREA NITROGEN, BLOOD 9 mg/dL (7-18)
[2024-12-08] MEDS ORDERED: SODIUM CHLORIDE 0.9% 100 ML ONE (17:38)
[2024-12-08] MEDS ORDERED: IOHEXOL 350 MG/ML 100 ML VIAL ONE (17:38)
[2024-12-08] MEDS ORDERED: 0.9% SODIUM CHLORIDE 10 ML SYRINGE IVP ONE (17:38)
[2024-12-08] MEDS: IOHEXOL 9 MG/ML 500 ML BOTTLE PO ONE (17:43)
[2024-12-08 17:44] LABS: BILIRUBIN,DIRECT 0.2 mg/dL (0.00-0.20); BILIRUBIN,TOTAL 0.9 mg/dL (0.1-1.0); TOTAL PROTEIN, SERUM 7.2 g/dL (6.4-8.2)
[2024-12-08] MEDS: ONDANSETRON HCL 4 MG/2 ML VIAL IVP ONE ×2 (17:44→19:28)
[2024-12-08] MEDS: MORPHINE SULFATE 4 MG/ML SYRINGE IVP ONE (17:44)
[2024-12-08] MEDS: SODIUM CHLORIDE 0.9% 2,000 ML IV ONE (17:44)
[2024-12-08] MEDS: HYDROmorphone HCL 2 MG/ML SYRINGE IVP ONE (18:21)
[2024-12-08] MEDS: KETOROLAC TROMETHAMINE 30 MG/ML VIAL IVP ONE (19:28)
[2024-12-08] MEDS: POLYETHYLENE GLYCOL 3350 17 GM PACKET PO SCH (21:30)
[2024-12-08] MEDS ORDERED: NALOXONE HCL 1 MG/ML 2 ML SYRINGE IVP PRN (21:30)
[2024-12-08] MEDS ORDERED: MORPHINE SULFATE 2 MG/ML SYRINGE IVP PRN (21:30)
[2024-12-08] MEDS: PANTOPRAZOLE SODIUM 40 MG/VIAL IVP SCH (22:00)
[2024-12-08] MEDS: MAGNESIUM HYDROXIDE SUSPENSION 30 ML UDCUP PO ONE (22:00)
[2024-12-08] MEDS: FentaNYL CITRATE PF 100 MCG/2 ML VIAL IVP ONE (22:01)
[2024-12-08 22:30] VITALS: BP 121/79; PULSE 61; RESP 18; TEMP 97.7; O2SAT 99
[2024-12-08] MEDS: DEXTROSE 5%-LACTATED RINGERS 1,000 ML IV SCH (22:39)
[2024-12-08] MEDS: SENNOSIDES 8.6 MG TABLET PO ONE (22:40)
[2024-12-09 00:26] LABS: HEMATOCRIT 41.7 % (41-53)
[2024-12-09 04:50] VITALS: BP 104/69; PULSE 73; RESP 17; TEMP 97.8; O2SAT 97
[2024-12-09 06:12] LABS: BASOPHILS % (AUTO) 0.8 % (0.0-2.0); EOSINOPHILS % (AUTO) 3.9 % (1.0-6.0); HEMATOCRIT 41.1 % (41-53); HEMATOCRIT 41.8 % (41-53); HEMOGLOBIN 14.3 g/dL (13.5-17.5); LYMPHOCYTES # (AUTO) 2.2 K/uL (1.0-4.8); LYMPHOCYTES % (AUTO) 42.8 % (22.0-44.0); MEAN CORPUSCULAR HEMOGLOBIN 30.5 pg (26.0-34.0); MEAN CORPUSCULAR HGB CONC 34.1 G/dL (31.0-37.0); MEAN CORPUSCULAR VOLUME 90 fL (80-100); MONOCYTES # (AUTO) 0.6 K/uL (0.1-1.0); MONOCYTES % (AUTO) 10.9 % (2.0-9.0); NEUTROPHILS # (AUTO) 2.2 K/uL (1.8-7.7); NEUTROPHILS % (AUTO) 41.6 % (40.0-70.0); PLATELET COUNT (AUTO) 205 K/uL (150-450); RED BLOOD CELL COUNT(AUTO) 4.67 MIL/uL (4.50-5.90); RED CELL DISTRIBUTION WIDTH 14.1 % (11.5-14.5); WHITE BLOOD COUNT (AUTO) 5.2 K/uL (4.5-11.0)
[2024-12-09 06:21] LABS: ANION GAP 4 mmol/L (8-16); CALCIUM, TOTAL 8.6 mg/dL (8.8-10.5); CARBON DIOXIDE 29 mmol/L (22-29); CHLORIDE 105 mmol/L (98-107); GLOMERULAR FILTR. RATE CALC > 60 mL/min (>60); GLUCOSE,RANDOM 93 mg/dL (70-110); POTASSIUM 3.4 mmol/L (3.5-5.1); SODIUM SERUM 138 mmol/L (136-145); UREA NITROGEN, BLOOD 9 mg/dL (7-18)
[2024-12-09 07:59] VITALS: BP 109/72; PULSE 59; RESP 18; TEMP 97.7; O2SAT 100
[2024-12-09] MEDS: DOCUSATE SODIUM 100 MG CAPSULE PO SCH ×2 (08:45→13:34)
[2024-12-09] MEDS: HYDROmorphone HCL 2 MG/ML SYRINGE IVP ONE (08:58)
[2024-12-09] MEDS: ONDANSETRON HCL 4 MG/2 ML VIAL IVP PRN (08:59)
[2024-12-09 11:17] LABS: APPEARANCE,URINE CLEAR (CLEAR); BILIRUBIN,URINE NEGATIVE (NEGATIVE); COLOR,URINE LIGHT YELLOW (YELLOW); GLUCOSE, URINE (UA) NEGATIVE (NEGATIVE); KETONES,URINE NEGATIVE (NEGATIVE); LEUKOCYTE ESTERASE ,URINE NEGATIVE (NEGATIVE); NITRATE,URINE NEGATIVE (NEGATIVE); OCCULT BLOOD,URINE NEGATIVE (NEGATIVE); PH,URINE 6.5 (5.0-8.0); PROTEIN,URINE NEGATIVE (NEGATIVE); SPECIFIC GRAVITIY, URINE 1.019 (1.003-1.030); UROBILINOGEN,URINE <=1.0 mg/dL (<=1.0)
[2024-12-09 11:24] LABS: ALCOHOL, URINE DRUG SCREEN NEGATIVE (NEGATIVE); AMPHET/METH SCREEN,URINE NEGATIVE (NEGATIVE); BARBITURATE SCREEN, URINE NEGATIVE (NEGATIVE); BENZODIAZEPINES SCREEN,URINE NEGATIVE (NEGATIVE); CANNABINOID SCREEN,URINE NEGATIVE (NEGATIVE); COCAINE SCREEN,URINE NEGATIVE (NEGATIVE); METHADONE SCREEN, URINE NEGATIVE (NEGATIVE); OPIATE SCREEN,URINE POSITIVE (NEGATIVE); PHENCYCLIDINE SCREEN,URINE NEGATIVE (NEGATIVE)
[2024-12-09 11:32] LABS: PH,URINE DRUG SCREEN 6.5 (5.0-8.0)
[2024-12-09 11:53] LABS: HEMATOCRIT 41.7 % (41-53); HEMOGLOBIN 14.2 g/dL (13.5-17.5)
[2024-12-09] MEDS ORDERED: POTASSIUM CHL 10 MEQ/WATER 50 ML IV PRN (12:00)
[2024-12-09] MEDS ORDERED: BISACODYL 10 MG RECTAL RECTAL SUPPOSITORY PR PRN (12:00)
[2024-12-09] MEDS: POTASSIUM CHLORIDE 20 MEQ ER TABLET PO PRN (13:34)
[2024-12-09] MEDS: ACETAMINOPHEN 325 MG TABLET PO PRN (16:13)
[2024-12-09 16:21] VITALS: BP 122/79; PULSE 58; RESP 18; TEMP 98.2; O2SAT 99
[2024-12-09 21:14] VITALS: BP 109/73; PULSE 62; RESP 19; TEMP 97.9; O2SAT 98
[2024-12-10] MEDS ORDERED: HEPARIN SODIUM,PORCINE 5,000 UNITS/ML VIAL SQ SCH
[2024-12-10] MEDS: LACTULOSE 20 GM/30 ML SOLUTION UDCUP PO PRN (05:21)
[2024-12-10 05:26] VITALS: BP 91/57; PULSE 58; RESP 18; TEMP 97.7; O2SAT 99
[2024-12-10 09:48] VITALS: BP 119/81; PULSE 58; RESP 18; TEMP 97.7; O2SAT 99
[2024-12-10] MEDS ORDERED: MINERAL OIL 133 ML ENEMA PR ONE (10:30)
[2024-12-10] MEDS: LINACLOTIDE 72 MCG CAPSULE PO ONE (14:18)
[2024-12-10 20:29] VITALS: BP 135/80; PULSE 73; RESP 18; TEMP 98.2; O2SAT 98
[2024-12-11 05:00] VITALS: BP 112/81; PULSE 60; RESP 16; TEMP 97.8; O2SAT 99
[2024-12-11] MEDS ORDERED: POLY17PO47 PO (12:41)
[2024-12-11] MEDS: MAGNESIUM CITRATE [LEMON] 300 ML ORAL SOLUTION PO ONE (13:10)
== END 2024-12-11 15:25 | disposition home or self-care (01) | DRG 254 ==
LOC: EMS 15:46 → EDH 21:20 → 4E 22:20
PROVIDERS: ADMIT Internal Medicine; ATTEND Internal Medicine
DX: K59.09 Other constipation (principal); E86.0 Dehydration; K57.30 Diverticulosis of large intestine without perforation or abscess without bleeding; K20.90 Esophagitis, unspecified without bleeding; Z79.899 Other long term (current) drug therapy
CPT/HCPCS: 71045; 74177; 80048; 80076; 80307; 81003; 83690; 83735; 84132; 85014; 85018; 85025; 93005; 96374; 96375; 96376; 99285; G0378; J1171; J1885; J2270; J2405; J2470; J3010; J7030; J7050; 36415-L1; 36415-TC

== ENCOUNTER 2025-02-11 20:26 | Emergency (ER) | payer OTHER ==
[~2025-02-11] VITALS: Ht 193 cm; Wt 102.3 kg
[~2025-02-11 20:26] MED LIST changes: -ACET-3385 PO; -AMOX-457 PO; -IBUP-1492 PO; -MAG30ORA11 PO; +POLY17PO47 PO
[2025-02-11 20:29] VITALS: BP 125/77; PULSE 97; RESP 18; TEMP 98.5; O2SAT 99
== END 2025-02-11 23:28 | disposition left against medical advice (07) ==
LOC: EMS 20:26
DX: K08.89 Other specified disorders of teeth and supporting structures (principal); Z53.21 Procedure and treatment not carried out due to patient leaving prior to being seen by health care provider

== ENCOUNTER 2025-03-02 16:54 | Emergency (ER) | payer OTHER ==
[~2025-03-02] VITALS: Ht 193 cm; Wt 102.3 kg
[2025-03-02 17:04] VITALS: BP 158/94; PULSE 76; RESP 18; TEMP 98.4; O2SAT 99
[2025-03-02 17:19] LABS: COVID AG,FIA SOURCE NASAL SWAB
[2025-03-02 17:51] LABS: SARS-COV2 (COVID) ANTIGEN,FIA Negative (Negative)
[2025-03-02 17:52] LABS: INFLUENZA TYPE A NEGATIVE FOR TYPE A (NEGATIVE); INFLUENZA TYPE B NEGATIVE FOR TYPE B (NEGATIVE)
[2025-03-02 18:02] LABS: RAPID GROUP A STREP NEGATIVE (NEGATIVE)
[2025-03-02] MEDS ORDERED: BENZ-227 PO (19:07)
[2025-03-02] MEDS: BENZONATATE 100 MG CAPSULE PO ONE (19:16)
== END 2025-03-02 19:27 | disposition home or self-care (01) ==
LOC: EMS 16:54
DX: J06.9 Acute upper respiratory infection, unspecified (principal); Z79.899 Other long term (current) drug therapy; Z20.822 Contact with and (suspected) exposure to COVID-19
CPT/HCPCS: 71046; 87430; 87804; 99284

== ENCOUNTER 2025-03-16 05:04 | Emergency (ER) | payer OTHER ==
[~2025-03-16] VITALS: Ht 193 cm; Wt 113.6 kg
[~2025-03-16 05:04] MED LIST changes: +BENZ-227 PO
[2025-03-16 05:10] VITALS: BP 140/89; PULSE 69; RESP 20; TEMP 97.9; O2SAT 98
[2025-03-16] MEDS ORDERED: TRAM50TA5 PO (06:21)
[2025-03-16] MEDS ORDERED: AMOX500T2 PO (06:21)
[2025-03-16] MEDS ORDERED: IBUP-1554 PO (06:21)
== END 2025-03-16 06:26 | disposition home or self-care (01) ==
LOC: EMS 05:04
DX: K04.7 Periapical abscess without sinus (principal); K08.89 Other specified disorders of teeth and supporting structures; Z79.899 Other long term (current) drug therapy
CPT/HCPCS: 99283; Z7502

== ENCOUNTER 2025-03-24 00:27 | Emergency (ER) | payer OTHER ==
[~2025-03-24] VITALS: Ht 193 cm; Wt 104.5 kg
[~2025-03-24 00:27] MED LIST changes: +AMOX500T2 PO; +IBUP-1554 PO; +TRAM50TA5 PO
[2025-03-24 00:30] VITALS: BP 121/75; PULSE 67; RESP 16; TEMP 97.5; O2SAT 100
== END 2025-03-24 01:00 | disposition left against medical advice (07) ==
LOC: EMS 00:28
DX: M79.641 Pain in right hand (principal); Z53.21 Procedure and treatment not carried out due to patient leaving prior to being seen by health care provider

== ENCOUNTER 2025-03-24 17:20 | Emergency (ER) | payer OTHER ==
[~2025-03-24] VITALS: Ht 193 cm; Wt 104.5 kg
[2025-03-24 17:28] VITALS: TEMP 97.7
[2025-03-24] MEDS: IBUPROFEN 600 MG TABLET PO ONE (19:38)
[2025-03-24 19:49] VITALS: BP 107/81; PULSE 57; RESP 18; O2SAT 98
== END 2025-03-24 20:01 | disposition home or self-care (01) ==
LOC: EMS 17:20
DX: S63.601A Unspecified sprain of right thumb, initial encounter (principal); S60.011A Contusion of right thumb without damage to nail, initial encounter; Z79.899 Other long term (current) drug therapy; W23.0XXA Caught, crushed, jammed, or pinched between moving objects, initial encounter; Y93.89 Activity, other specified; Y92.89 Other specified places as the place of occurrence of the external cause; Y99.8 Other external cause status
CPT/HCPCS: 99283

== ENCOUNTER 2025-05-11 10:39 | Emergency (ER) | payer OTHER ==
[~2025-05-11] VITALS: Ht 165.1 cm; Wt 63.6 kg
[2025-05-11 11:20] LABS: PLATELET COUNT (AUTO) 201 K/uL (150-450); RED BLOOD CELL COUNT(AUTO) 4.96 MIL/uL (4.50-5.90); RED CELL DISTRIBUTION WIDTH 14.1 % (11.5-14.5); WHITE BLOOD COUNT (AUTO) 5.1 K/uL (4.5-11.0)
[2025-05-11 11:29] LABS: CALCIUM, TOTAL 8.8 mg/dL (8.8-10.5); CREATININE 1.05 mg/dL (0.60-1.30); GLOMERULAR FILTR. RATE CALC > 60 mL/min (>60); GLUCOSE,RANDOM 123 mg/dL (70-110); SODIUM SERUM 140 mmol/L (136-145); UREA NITROGEN, BLOOD 11 mg/dL (7-18)
[2025-05-11 11:37] LABS: ASPARTATE AMINOTRANSFERASE 26.0 U/L (15-37); TOTAL PROTEIN, SERUM 7.2 g/dL (6.4-8.2)
[2025-05-11 14:20] VITALS: BP 134/73; PULSE 74; RESP 16; TEMP 97.5; O2SAT 100
[2025-05-11] MEDS ORDERED: IOHEXOL 350 MG/ML 100 ML VIAL ONE (14:51)
[2025-05-11] MEDS: MORPHINE SULFATE 2 MG/ML SYRINGE IVP ONE (15:18)
[2025-05-11] MEDS: ONDANSETRON HCL 4 MG/2 ML VIAL IVP ONE (15:19)
[2025-05-11] MEDS: SODIUM CHLORIDE 0.9% 1,000 ML IV ONE (15:19)
[2025-05-11] MEDS: FAMOTIDINE 20 MG/2 ML VIAL IVP ONE (15:19)
[2025-05-11 16:26] LABS: APPEARANCE,URINE CLEAR (CLEAR); GLUCOSE, URINE (UA) NEGATIVE (NEGATIVE); LEUKOCYTE ESTERASE ,URINE NEGATIVE (NEGATIVE); NITRATE,URINE NEGATIVE (NEGATIVE); OCCULT BLOOD,URINE NEGATIVE (NEGATIVE); SPECIFIC GRAVITIY, URINE 1.020 (1.003-1.030)
== END 2025-05-11 17:52 | disposition left against medical advice (07) ==
LOC: EMS 10:39
DX: K29.70 Gastritis, unspecified, without bleeding (principal); Z79.899 Other long term (current) drug therapy
CPT/HCPCS: 99285; 74176; 96374; 96375; 80048; 80076; 81003; 83690; 85025; 36415; J3490; J2270; J2405; J7030